=== PATIENT | female | born 1985 | race Caucasian/White ===

== ENCOUNTER 2017-05-21 23:24 | Emergency (ER) | payer BC ==
[2017-05-22] MEDS ORDERED: Ondansetron INJ* 2 MG/ML VIAL ONE (00:11)
[2017-05-22] MEDS ORDERED: Ondansetron INJ* 2 MG/ML VIAL IV ONE ×2 (00:26→03:37)
[2017-05-22] MEDS ORDERED: NS 0.9% 1000 ML* 1,000 ML IV ONE (00:27)
[2017-05-22 00:32] LABS: ABS Basophils 0.1 10^3/ul (0-0.2); ABS Eosinophils 0.2 10^3/ul (0-0.6); ABS Lymphocytes 2.2 10^3/ul (1.0-4.8); ABS Monocytes 0.8 10^3/ul (0-0.8); ABS Neutrophils 9.4 10^3/ul (1.5-7.7); ABS Nucleated RBC 0 10^3/ul; Eosinophil % 1.5 % (0-6); Hematocrit 40 % (35-47); Hemoglobin 13.3 g/dl (12.0-16.0); Lymphocyte % 17.5 % (25-47); Mean Corpuscular HGB Conc 33 g/dl (31-36); Mean Corpuscular Hemoglobin 28 pg (27-31); Mean Corpuscular Volume 85 fL (80-97); Mean Platelet Volume 9 um3 (7.4-10.4); Nucleated Red Blood Cells % 0.1; Platelet Count 319 10^3/ul (150-450); Red Blood Count 4.71 10^6/ul (4.0-5.4); Red Cell Distribution Width 15 % (10.5-15); White Blood Count 12.7 10^3/ul (3.5-10.8)
[2017-05-22 00:52] LABS: EGFR Non-African American 68.2 (>60)
[2017-05-22] MEDS ORDERED: Metoclopramide IV* 5 MG/ML 2 ML VIAL IV ONE (00:57)
[2017-05-22] MEDS ORDERED: NS 0.9% 1000 ML* 2,000 ML IV ONE (00:57)
[2017-05-22] MEDS ORDERED: HYDROmorphone INJ* 2 MG/ML CARPUJECT SYRINGE IV SLOW PU ONE (00:57)
[2017-05-22 01:54] LABS: Urine Appearance Clear; Urine Blood Negative (Negative); Urine Color Yellow; Urine Ketones Negative (Negative); Urine Protein Negative (Negative); Urine Specific Gravity 1.016 (1.010-1.030); Urine Urobilinogen Negative (Negative)
[2017-05-22] MEDS ORDERED: Iodixanol* (CONTRAST) 320 MG/ML 100 ML SDV IV ONE (02:10)
--- NOTE | 2017-05-22 03:56 | ED ---
Adelina Brady Thomas, scribed for Katerina Purvis MD on 05/22/17 at 0052 . Abdominal Pain/Female - HPI Summary HPI Summary: The patient is a 31 year old female complaining of epigastric pain that began a couple days ago but significantly worsened today. The pain radiates to her back. She also complains of nausea. Past medical history includes insulin- dependent diabetes, acute pancreatitis, and chronic pancreatitis. Her last bout acute pancreatitis was in March 2015. - History of Current Complaint Chief Complaint: EDAbdPain Stated Complaint: ABD PAIN Time Seen by Provider: 05/22/17 00:36 Hx Obtained From: Patient Onset/Duration: Lasting Days, Still Present, Worse Since - today Timing: Constant Severity Currently: Moderate Pain Intensity: 6 Pain Scale Used: 0-10 Numeric Location: Epigastric Radiates: Yes Radiates to: Back Alleviating Factor(s): Nothing Associated Signs and Symptoms: Positive: Nausea Allergies/Adverse Reactions: Allergies Allergy/AdvReac Type Severity Reaction Status Date / Time No Known Allergies Allergy Verified 05/21/17 23:29 PMH/Surg Hx/FS Hx/Imm Hx Endocrine/Hematology History: Reports: Hx Diabetes GI History: Reports: Other GI Disorders - Hx acute, chronic pancreatitis - Cancer History Cancer Type, Location and Year: Leukemia Infectious Disease History: No Infectious Disease History: Denies: Traveled Outside the [place] in Last 30 Days - Family History Known Family History: Positive: Diabetes - Social History Occupation: Employed Full-time Alcohol Use: None - 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 GENERAL: Patient is a well-developed and nourished female who is lying comfortable in the stretcher. Patient is not in any acute respiratory distress. HEAD AND FACE: No signs of trauma. No ecchymosis, hematomas or skull depressions. No sinus tenderness. EYES: PERRLA, EOMI x 2, No injected conjunctiva, no nystagmus. EARS: Hearing grossly intact. Ear canals and tympanic membranes are within normal limits. MOUTH: Oropharynx within normal limits. NECK: Supple, trachea is midline, no adenopathy, no JVD, no carotid bruit, no c- spine tenderness, neck with full ROM. CHEST: Symmetric, no tenderness at palpation LUNGS: Clear to auscultation bilaterally. No wheezing or crackles. CVS: Regular rate and rhythm, S1 and S2 present, no murmurs or gallops appreciated. ABDOMEN: Soft. Diffuse tenderness, mostly in the epigastrium. No signs of distention. No rebound no guarding, and no masses palpated. Bowel sounds are normal. EXTREMITIES: FROM in all major joints, no edema, no cyanosis or clubbing. NEURO: Alert and oriented x 3. No acute neurological deficits. Speech is normal and follows commands. SKIN: Dry and warm Triage Information Reviewed: Yes Vital Signs On Initial Exam: Initial Vitals Temp Pulse Resp BP Pulse Ox 97.7 F 106 16 154/94 97 05/21/17 23:26 05/21/17 23:26 05/21/17 23:26 05/21/17 23:26 05/21/17 23:26 Vital Signs Reviewed: Yes Diagnostics - Vital Signs Vital Signs Temp Pulse Resp BP Pulse Ox 05/21/17 23:26 97.7 F 106 16 154/94 97 - Laboratory Lab Results: Lab Results 05/22/17 Range/Units 00:21 WBC 12.7 H (3.5-10.8) 10^3/ul RBC 4.71 (4.0-5.4) 10^6/ul Hgb 13.3 (12.0-16.0) g/dl Hct 40 (35-47) % MCV 85 (80-97) fL MCH 28 (27-31) pg MCHC 33 (31-36) g/dl RDW 15 (10.5-15) % Plt Count 319 (150-450) 10^3/ul MPV 9 (7.4-10.4) um3 Neut % (Auto) 74.2 (38-83) % Lymph % (Auto) 17.5 L (25-47) % [place] % (Auto) 6.2 (0-7) % Eos % (Auto) 1.5 (0-6) % Baso % (Auto) 0.6 (0-2) % Absolute Neuts (auto) 9.4 H (1.5-7.7) 10^3/ul Absolute Lymphs (auto) 2.2 (1.0-4.8) 10^3/ul Absolute Monos (auto) 0.8 (0-0.8) 10^3/ul Absolute Eos (auto) 0.2 (0-0.6) 10^3/ul Absolute Basos (auto) 0.1 (0-0.2) 10^3/ul Absolute Nucleated RBC 0 10^3/ul Nucleated RBC % 0.1 Result Diagrams: 05/22/17 00:21 05/22/17 00:21 Lab Statement: Any lab studies that have been ordered have been reviewed, and results considered in the medical decision making process. - CT CT Abd/Pel CT Interpretation: No Acute Changes - No bowel obstruction, free air, or lisa fluid. Negative for diverticulitis or colitis. There is reflux of contrast note made of some gastroesophageal reflux of contrast. Normal kidneys urinary tract and urinary bladder. 1.9 cm enhancing lesion of right lobe of liver. Never present hemangioma but recommend follow up to confirm. Normal spleen. Normal pancreas. Normal gallbladder. Normal adrenal glands. No osseous abnormalities of the pelvic organs. Trace fluid in the pelvic cul de sac likely physiologic. Osseous structures are intact. Dr. Claros has reviewed this report. CT Interpretation Completed By: Radiologist Re-Evaluation - Re-Evaluation First Eval Re-Evaluation Time: 03:52 Comment: Results discussed. Patient will be discharged. Abdominal Pain Fem Course/Dx - Course Course Of Treatment: The patient is a 31 year old female with a history of pancreatitis complaining of epigastric pain that began a couple days ago but significantly worsened today. In the ED course the patient was given Dilaudid, Reglan, Zofran, and IV fluids. Bloodwork and urinalysis were obtained. CT Abd/ Pel shows No bowel obstruction, free air, or lisa fluid. Negative for diverticulitis or colitis. There is reflux of contrast note made of some gastroesophageal reflux of contrast. Normal kidneys urinary tract and urinary bladder. 1.9 cm enhancing lesion of right lobe of liver. Never present hemangioma but recommend follow up to confirm. Normal spleen. Normal pancreas. Normal gallbladder. Normal adrenal glands. No osseous abnormalities of the pelvic organs. Trace fluid in the pelvic cul de sac likely physiologic. Osseous structures are intact. The patient is diagnosed with abdominal pain. The patient is instructed to follow up with primary care. The patient is prescribed Zofran and Percocet. - Diagnoses Provider Diagnoses: Abdominal pain Discharge - Discharge Plan Condition: Stable Disposition: HOME Prescriptions: Ondansetron ODT TAB* [Zofran 4 MG Odt TAB*] 8 mg PO Q8H PRN #20 tab.odt PRN Reason: Nausea/Vomiting oxyCODONE/Acetamin 5/325 MG* [Percocet 5/325 TAB*] 1 tab PO Q6H PRN #14 tab MDD 4 PRN Reason: Pain Patient Education Materials: Abdominal Pain (ED) Referrals: [facility] PHYSICIAN REFERRAL [Outside] - 3 Days Additional Instructions: Follow up with your primary care physician in three days. If you do not have a primary care provider, you can use the [facility] physician referral service to find one and make an appointment. Return to the emergency department for any new or worsening symptoms. The documentation as recorded by the Adelina chamorro Thomas accurately reflects the service I personally performed and the decisions made by me, Katerina Purvis MD.
[2017-05-22] MEDS ORDERED: Ondansetron ODT TAB* 4 MG SL PRN (04:01)
[2017-05-22] MEDS ORDERED: O ndansetron ODT 4MG 2TAB PRPK 4 MG PAK PO ONE (04:12)
[2017-05-22 04:29] VITALS: BP 95/76
--- NOTE | 2017-05-22 09:35 | RAD ---
INDICATION: Abdominal pain, history of pancreatitis. COMPARISON: There are no prior studies available for comparison. TECHNIQUE: A CT scan of the abdomen and pelvis was performed with intravenous and oral contrast following intravenous injection of 64 ml of Visipaque 320 nonionic contrast. Contiguous axial sections were obtained from the lung bases through the symphysis pubis. Images were reconstructed in the coronal and sagittal planes. FINDINGS: There is mild dependent bilateral lower lobe subsegmental atelectasis. No pleural effusion is present. The liver is mildly enlarged and decreased in attenuation consistent with fatty infiltration. In addition there is a 1.9 cm enhancing lesion in the posterior segment of the right hepatic lobe. No calcified gallstones are seen. The spleen and pancreas appear to be within normal limits The kidneys and adrenal glands are normal in size. No hydronephrosis is seen. No significant focal renal abnormality is seen. The aorta is normal in caliber and demonstrates homogeneous contrast opacification. No significant enlarged retroperitoneal lymph nodes are seen. The stomach, small and large bowel appear nondistended. The patient is status post appendectomy. There is a suture line present along the medial aspect of the cecum. There is mild descending and sigmoid diverticulosis without evidence for diverticulitis. No free intraperitoneal air or fluid is seen. The uterus is anteverted and normal in size. There is a 1.3 cm sclerotic lesion present within the left femoral head. There is also a small sclerotic lesion within the symphysis pubis on the left side. No other focal osseous normality is are seen. The results of this examination were called to the emergency department charge nurse Karen. IMPRESSION: 1. NO EVIDENCE FOR ACUTE FINDING OR CAUSE FOR THE PATIENT'S ABDOMINAL PAIN IS SEEN. 2. 1.9 CM ENHANCING LESION WITHIN THE LIVER POSSIBLY A HEMANGIOMA OR FOCAL NODULAR HYPERPLASIA ALTHOUGH NONSPECIFIC. RECOMMEND AN MRI OF THE LIVER WITHOUT AND WITH CONTRAST. 3. 1.3 CM SCLEROTIC LESION IN THE LEFT FEMORAL HEAD. RECOMMEND A BONE SCAN FOR FURTHER EVALUATION. 4. MILD HEPATOMEGALY AND HEPATIC STEATOSIS.
== END 2017-05-22 04:35 | disposition home or self-care (01) ==
LOC: ED 23:24
DX: R10.13 Epigastric pain (principal); R11.0 Nausea; K76.9 Liver disease, unspecified; K76.0 Fatty (change of) liver, not elsewhere classified; R16.0 Hepatomegaly, not elsewhere classified; Z32.02 Encounter for pregnancy test, result negative; E11.9 Type 2 diabetes mellitus without complications; Z79.4 Long term (current) use of insulin; K86.1 Other chronic pancreatitis; F17.210 Nicotine dependence, cigarettes, uncomplicated
CPT/HCPCS: 36415; 74177; 80053; 81003; 82150; 83605; 83690; 83735; 84478; 84702; 85025; 86140; 96361; 96374; 96375; 96376; 99283; A9270-GY; J1170; J2405; J2765; Q9967

== ENCOUNTER 2017-05-28 23:04 | Emergency (ER) | payer BC ==
[2017-05-29 02:04] LABS: Hematocrit 37 % (35-47); Hemoglobin 12.2 g/dl (12.0-16.0); Mean Corpuscular HGB Conc 33 g/dl (31-36); Mean Corpuscular Hemoglobin 28 pg (27-31); Mean Corpuscular Volume 86 fL (80-97); Mean Platelet Volume 8.3 um3 (7.4-10.4); Platelet Count 389 10^3/ul (150-450); Red Blood Count 4.28 10^6/ul (4.0-5.4); Red Cell Distribution Width 15 % (10.5-15); White Blood Count 12.3 10^3/ul (3.5-10.8)
[2017-05-29 02:05] LABS: Urine Appearance Clear; Urine Blood Negative (Negative); Urine Color Straw; Urine Ketones Negative (Negative); Urine Protein Negative (Negative); Urine Specific Gravity 1.008 (1.010-1.030); Urine Urobilinogen Negative (Negative)
[2017-05-29] MEDS ORDERED: HYDROmorphone INJ* 2 MG/ML CARPUJECT SYRINGE IV SLOW PU ONE (02:06)
[2017-05-29] MEDS ORDERED: Dexamethasone IV* 4 MG/ML 1 ML (4 MG) IV SLOW PU ONE (02:07)
[2017-05-29] MEDS ORDERED: NS 0.9% 1000 ML* 1,000 ML IV ONE (02:08)
[2017-05-29 02:11] LABS: ABS Basophils 0.1 10^3/ul (0-0.2); ABS Eosinophils 0.2 10^3/ul (0-0.6); ABS Lymphocytes 5.6 10^3/ul (1.0-4.8); ABS Monocytes 0.9 10^3/ul (0-0.8); ABS Neutrophils 5.5 10^3/ul (1.5-7.7); ABS Nucleated RBC 0 10^3/ul; Eosinophil % 1.8 % (0-6); Lymphocyte % 45.6 % (25-47); Nucleated Red Blood Cells % 0.1
[2017-05-29 02:21] LABS: EGFR Non-African American 76.5 (>60)
[2017-05-29 04:23] VITALS: BP 108/60
--- NOTE | 2017-05-31 15:02 | ED ---
Wellington Brady Angela, scribed for Clarence Bustillos MD on 05/29/17 at 0201 . Abdominal Pain/Female - HPI Summary HPI Summary: This pt is a 31 y/o female with hx of chronic pancreatitis presenting to [facility] c /o intermittent abd pain x1 week. Pt additionally notes she feels feverish, has diarrhea, nausea. She describes diarrhea as non-bloody. Her last bowel movement was this morning. Denies vaginal bleeding or discharge, dysuria. She reports her diet makes her symptoms better. Pt was seen last week for the same symptoms and had a CT done, her triglycerides was 420. She states she has been hospitalized twice in the last year for severe inflamed bowels. Pt reports her triglycerides are in the 1000's when she was hospitalized. 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 - History of Current Complaint Chief Complaint: EDAbdPain Stated Complaint: ABD PAIN Hx Obtained From: Patient Onset/Duration: Lasting Days, Still Present Timing: Days Severity Currently: Severe Pain Intensity: 7 Pain Scale Used: 0-10 Numeric Location: Diffuse Radiates: No Aggravating Factor(s): Nothing Alleviating Factor(s): Nothing Associated Signs and Symptoms: Positive: Fever - feels feverish, Nausea, Diarrhea. Negative: Constipation, Blood in Stool, Vaginal Bleeding, Vaginal Discharge, Vomiting Allergies/Adverse Reactions: Allergies Allergy/AdvReac Type Severity Reaction Status Date / Time No Known Allergies Allergy Verified 05/21/17 23:29 PMH/Surg Hx/FS Hx/Imm Hx Endocrine/Hematology History: Reports: Hx Diabetes, Hx Thyroid Disease - hypothyroidism Cardiovascular History: Reports: Other Cardiovascular Problems/Disorders - Hypertriglyceridemia GI History: Reports: Other GI Disorders - Hx acute, chronic pancreatitis - Cancer History Cancer Type, Location and Year: Acute monocytic leukemia - Surgical History Surgery Procedure, Year, and Place: appendectomy Infectious Disease History: No Infectious Disease History: Denies: Traveled Outside the [place] in Last 30 Days - Family History Known Family History: Positive: Diabetes - Social History Alcohol Use: None Hx Substance Use: No - No substances currently, 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 Negative: Vomiting Negative: dysuria, discharge, other - vaginal bleeding Skin: Negative Neurological: Negative All Other Systems Reviewed And Are Negative: Yes Physical Exam - Summary Physical Exam Summary: gen: no acute distress heent: normal mucous membranes, normal ROM of neck cv: normal s1s2 no murmurs resp: clear to auscultation b/l abd/GI: no abdominal tenderness or masses. normal bowel sounds. musculoskel: full ROM in all 4 extremities neuro: no focal neuro deficits : skin: warm, dry psych: normal affect Triage Information Reviewed: Yes Vital Signs On Initial Exam: Initial Vitals Temp Pulse Resp BP Pulse Ox 97.7 F 114 20 135/99 95 05/28/17 23:05 05/28/17 23:05 05/28/17 23:05 05/28/17 23:05 05/28/17 23:05 Vital Signs Reviewed: Yes Diagnostics - Vital Signs Vital Signs Temp Pulse Resp BP Pulse Ox 05/29/17 00:29 82 16 109/83 96 05/29/17 00:06 89 98 05/29/17 00:04 114/76 05/28/17 23:05 97.7 F 114 20 135/99 95 - Laboratory Lab Results: Lab Results 05/29/17 05/29/17 05/29/17 Range/Units 01:50 01:50 01:50 WBC 12.3 H (3.5-10.8) 10^3/ul RBC 4.28 (4.0-5.4) 10^6/ul Hgb 12.2 (12.0-16.0) g/dl Hct 37 (35-47) % MCV 86 (80-97) fL MCH 28 (27-31) pg MCHC 33 (31-36) g/dl RDW 15 (10.5-15) % Plt Count 389 (150-450) 10^3/ul MPV 8.3 (7.4-10.4) um3 Neut % (Auto) 44.7 (38-83) % Lymph % (Auto) 45.6 (25-47) % [place] % (Auto) 7.3 H (0-7) % Eos % (Auto) 1.8 (0-6) % Baso % (Auto) 0.6 (0-2) % Absolute Neuts (auto) 5.5 (1.5-7.7) 10^3/ul Absolute Lymphs (auto) 5.6 H (1.0-4.8) 10^3/ul Absolute Monos (auto) 0.9 H (0-0.8) 10^3/ul Absolute Eos (auto) 0.2 (0-0.6) 10^3/ul Absolute Basos (auto) 0.1 (0-0.2) 10^3/ul Absolute Nucleated RBC 0 10^3/ul Nucleated RBC % 0.1 Sodium 138 (133-145) mmol/L Potassium 3.8 (3.5-5.0) mmol/L Chloride 104 (101-111) mmol/L Carbon Dioxide 26 (22-32) mmol/L Anion Gap 8 (2-11) mmol/L BUN 14 (6-24) mg/dL Creatinine 0.86 (0.51-0.95) mg/dL Est GFR ( Amer) 98.3 (>60) Est GFR (Non-Af Amer) 76.5 (>60) BUN/Creatinine Ratio 16.3 (8-20) Glucose 74 (70-100) mg/dL Lactic Acid 0.8 (0.5-2.0) mmol/L Calcium 10.8 H (8.6-10.3) mg/dL Total Bilirubin 0.30 (0.2-1.0) mg/dL AST 29 (13-39) U/L ALT 24 (7-52) U/L Alkaline Phosphatase 73 (34-104) U/L C-Reactive Protein < 1.00 (< 5.00) mg/L Total Protein 7.7 (6.4-8.9) g/dL Albumin 4.8 (3.2-5.2) g/dL Globulin 2.9 (2-4) g/dL Albumin/Globulin Ratio 1.7 (1-3) Amylase 23 L (29-103) U/L Lipase 19 (11.0-82.0) U/L Urine Color Urine Appearance Urine pH (5-9) Ur Specific [place] (1.010-1.030) Urine Protein (Negative) Urine Ketones (Negative) Urine Blood (Negative) Urine Nitrate (Negative) Urine Bilirubin (Negative) Urine Urobilinogen (Negative) Ur Leukocyte Esterase (Negative) Urine Glucose (Negative) 05/29/17 Range/Units 01:50 WBC (3.5-10.8) 10^3/ul RBC (4.0-5.4) 10^6/ul Hgb (12.0-16.0) g/dl Hct (35-47) % MCV (80-97) fL MCH (27-31) pg MCHC (31-36) g/dl RDW (10.5-15) % Plt Count (150-450) 10^3/ul MPV (7.4-10.4) um3 Neut % (Auto) (38-83) % Lymph % (Auto) (25-47) % [place] % (Auto) (0-7) % Eos % (Auto) (0-6) % Baso % (Auto) (0-2) % Absolute Neuts (auto) (1.5-7.7) 10^3/ul Absolute Lymphs (auto) (1.0-4.8) 10^3/ul Absolute Monos (auto) (0-0.8) 10^3/ul Absolute Eos (auto) (0-0.6) 10^3/ul Absolute Basos (auto) (0-0.2) 10^3/ul Absolute Nucleated RBC 10^3/ul Nucleated RBC % Sodium (133-145) mmol/L Potassium (3.5-5.0) mmol/L Chloride (101-111) mmol/L Carbon Dioxide (22-32) mmol/L Anion Gap (2-11) mmol/L BUN (6-24) mg/dL Creatinine (0.51-0.95) mg/dL Est GFR ( Amer) (>60) Est GFR (Non-Af Amer) (>60) BUN/Creatinine Ratio (8-20) Glucose (70-100) mg/dL Lactic Acid (0.5-2.0) mmol/L Calcium (8.6-10.3) mg/dL Total Bilirubin (0.2-1.0) mg/dL AST (13-39) U/L ALT (7-52) U/L Alkaline Phosphatase (34-104) U/L C-Reactive Protein (< 5.00) mg/L Total Protein (6.4-8.9) g/dL Albumin (3.2-5.2) g/dL Globulin (2-4) g/dL Albumin/Globulin Ratio (1-3) Amylase (29-103) U/L Lipase (11.0-82.0) U/L Urine Color Straw Urine Appearance Clear Urine pH 6.0 (5-9) Ur Specific [place] 1.008 L (1.010-1.030) Urine Protein Negative (Negative) Urine Ketones Negative (Negative) Urine Blood Negative (Negative) Urine Nitrate Negative (Negative) Urine Bilirubin Negative (Negative) Urine Urobilinogen Negative (Negative) Ur Leukocyte Esterase Negative (Negative) Urine Glucose Negative (Negative) Result Diagrams: 05/29/17 01:50 05/29/17 01:50 Lab Statement: Any lab studies that have been ordered have been reviewed, and results considered in the medical decision making process. Re-Evaluation - Re-Evaluation First Eval Re-Evaluation Time: 03:45 Comment: Pt reports she is feeling better. Abdominal Pain Fem Course/Dx - Course Course Of Treatment: because of her history of multiple prior episodes without any definitive diagnosis, and due to her young age with many CT scans in the past, I decided together wtih the patient that CT scan at this time would be inappropriate given nonfocal exam and relief with medications. Pt improved throughout ED course, labs and vitals wnl. Instructed to fu with GI physician, agrees to and understnads dc instructions. - Diagnoses Provider Diagnoses: Abdominal pain Discharge - Sign-Out/Discharge Documenting (check all that apply): Discharge - discharge to home - Discharge Plan Condition: Improved Disposition: HOME Prescriptions: oxyCODONE/Acetamin 5/325 MG* [Percocet 5/325 TAB*] 1 tab PO Q8H PRN #6 tab MDD 3 tabs PRN Reason: Pain - Moderate To Severe Patient Education Materials: Abdominal Pain (ED), Colitis (ED) Referrals: Jay Reece MD [Medical Doctor] - Jo Ann RAGSDALE,Paul Meyers [Primary Care Provider] - Magdy Hitchcock MD [Medical Doctor] - Additional Instructions: PLEASE TAKE MEDICATIONS DIRECTED PLEASE MAKE AN APPOINTMENT FIRST THING IN THE MORNING TO BE SEEN BY A [employer] WITHIN 1 WEEK PLEASE RETURN IMMEDIATELY TO THE ER IF YOU HAVE ANY WORSENING OR CONCERNING SYMPTOMS PLEASE MAKE AN APPOINTMENT TO BE SEEN BY YOUR PRIMARY CARE DOCTOR WITHIN 1 WEEK - Billing Disposition and Condition Condition: IMPROVED Disposition: HOME The documentation as recorded by the Wellington chamorro Angela accurately reflects the service I personally performed and the decisions made by me, Clarence Bustillos MD.
== END 2017-05-29 04:23 | disposition home or self-care (01) ==
LOC: ED 23:04
DX: R50.9 Fever, unspecified (principal); R11.0 Nausea; R19.7 Diarrhea, unspecified; R10.9 Unspecified abdominal pain
CPT/HCPCS: 36415; 80053; 81003; 82150; 83605; 83690; 85025; 86140; 96374; 96375; 99283; J1100; J1170

== ENCOUNTER 2017-08-04 07:08 | Emergency (ER) | payer BC ==
[2017-08-04] MEDS ORDERED: NS 0.9% 1000 ML* 1,000 ML IV ONE ×2 (07:21→09:04)
[2017-08-04] MEDS ORDERED: HYDROmorphone INJ* 2 MG/ML CARPUJECT SYRINGE IV SLOW PU ONE (08:15)
[2017-08-04] MEDS ORDERED: Pantoprazole IV* 40 MG IV ONE (08:17)
[2017-08-04 08:22] LABS: INR 0.98 (0.77-1.02)
[2017-08-04 08:28] LABS: EGFR Non-African American 73.5 (>60)
[2017-08-04 08:32] LABS: ABS Basophils 0.1 10^3/ul (0-0.2); ABS Eosinophils 0.2 10^3/ul (0-0.6); ABS Lymphocytes 4.3 10^3/ul (1.0-4.8); ABS Monocytes 0.8 10^3/ul (0-0.8); ABS Neutrophils 4.1 10^3/ul (1.5-7.7); ABS Nucleated RBC 0 10^3/ul; Eosinophil % 2.5 % (0-6); Hematocrit 35 % (35-47); Mean Corpuscular HGB Conc 34 g/dl (31-36); Mean Corpuscular Hemoglobin 29 pg (27-31); Mean Corpuscular Volume 85 fL (80-97); Mean Platelet Volume 8.8 um3 (7.4-10.4); Nucleated Red Blood Cells % 0; Platelet Count 342 10^3/ul (150-450); Red Blood Count 4.15 10^6/ul (4.0-5.4); Red Cell Distribution Width 14 % (10.5-15); White Blood Count 9.5 10^3/ul (3.5-10.8)
[2017-08-04 09:23] LABS: Urine Appearance Clear; Urine Blood Negative (Negative); Urine Color Straw; Urine Ketones Negative (Negative); Urine Protein Negative (Negative); Urine Specific Gravity 1.008 (1.010-1.030); Urine Urobilinogen Negative (Negative)
[2017-08-04] MEDS ORDERED: oxyCODONE/Acetamin 5/325 MG* TAB PO ONE (11:07)
[2017-08-04] MEDS ORDERED: Magnesium Oxide TAB* 400 MG PO ONE (11:07)
[2017-08-04] MEDS ORDERED: Ondansetron INJ* 2 MG/ML VIAL IV ONE (11:08)
[2017-08-04] MEDS ORDERED: Ondansetron ODT TAB* 4 MG PO ONE (11:15)
[2017-08-04] MEDS ORDERED: Ondansetron ODT TAB* 4 MG ONE (11:15)
[2017-08-04 12:33] VITALS: BP 130/79
--- NOTE | 2017-08-05 00:32 | ED ---
[place] Brady Emily, scribed for Isabel Tapia MD on 08/04/17 at 0757 . Abdominal Pain/Female - HPI Summary HPI Summary: This patient is a 31 year old F presenting to [facility] with a chief complaint of epigastric abd pain since 2 days ago. The patient rates the pain 9/10 in severity. Symptoms alleviated by nothing. Patient reports decreased appetite ( has not eaten since 2100 yesterday), her self-tested sugars are low (in the 60s three times yesterday), lower and upper back pain, and increased urinary frequency. She denies any recent injury to the back. Pt reports that she was diagnosed with a stomach ulcer last month by endoscopy ( Dr. Robins, [facility]), and prescribed omeprazole (20 mg for the last 3 weeks) . She is a type two diabetic and uses a pump for insulin and is followe by the [facility] in [place]. She reports she also has chronic pancreatitis, and these symptoms feel similar to the symptoms of her ulcer, not her pancreatitis. She reports that she had a tooth recently extracted from the bottom left, and another tooth "fall out" recently from the top left, but denies discharge or gum swelling at the sites of the tooth loss. Pt reports that she is a childhood leukemia (AML) survivor and has developed multiple complications from the total body radiation treatment for the leukemia , including multiple metabolic syndrome (MEN 2), thyroidectomy, early menopause (when she was 20), and chronic pain. She states that she has recently moved to the [place] area, and does not yet have a GI doctor in [place]. - History of Current Complaint Chief Complaint: EDAbdPain Stated Complaint: ABD PAIN Time Seen by Provider: 08/04/17 07:21 Hx Obtained From: Patient Hx Last Menstrual Period: post menopausal ?: No Onset/Duration: Sudden Onset, Lasting Days, Still Present Timing: Constant Severity Initially: Severe Severity Currently: Severe Pain Intensity: 9 Pain Scale Used: 0-10 Numeric Location: Epigastric Radiates: No Character: Burning Aggravating Factor(s): Nothing Alleviating Factor(s): Nothing Associated Signs and Symptoms: Positive: Back Pain, Urinary Symptoms, Decreased Appetite, Nausea, Other: - Positive decreased appetite, her self-tested sugars are low, lower and upper back pain, and increased urinary frequency. Simlar Episode/Dx as:: ulcer Allergies/Adverse Reactions: Allergies Allergy/AdvReac Type Severity Reaction Status Date / Time No Known Allergies Allergy Verified 08/04/17 07:13 Home Medications: Home Medications Choline Fenofibrate(NF) [Trilipix(NF)] 135 mg PO DAILY 08/04/17 [History Confirmed 08/04/17] Estradiol/Levonorgestrel [Climara Pro Patch] 1 patch TRANSDERM WEEKLY 08/04/17 [ History Confirmed 08/04/17] Icosapent Ethyl [Vascepa] 1 gm PO BID 08/04/17 [History Confirmed 08/04/17] Insulin LISPRO* [HumaLOG*] 0 units SUBCUT .VIA PUMP MDD 115 units 08/04/17 [ History Confirmed 08/04/17] Levothyroxine TAB* [Synthroid TAB*] 137 mcg PO DAILY 08/04/17 [History Confirmed 08/04/17] Pioglitazone TAB* [Actos TAB*] 15 mg PO DAILY 08/04/17 [History Confirmed ] Ramipril CAP* [Altace CAP*] 2.5 mg PO DAILY 08/04/17 [History Confirmed 08/04/17 ] Rosuvastatin (NF) [Crestor] 20 mg PO DAILY 08/04/17 [History Confirmed 08/04/17] buPROPion SR TAB* [Wellbutrin SR TAB*] 100 mg PO DAILY 08/04/17 [History Confirmed 08/04/17] PMH/Surg Hx/FS Hx/Imm Hx Previously Healthy: No Endocrine/Hematology History: Reports: Hx Diabetes - INSULIN PUMP. 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 - Surgical History Surgery Procedure, Year, and Place: APPENDECTOMY; THYROIDECTOMY NODULES-BENIGN; CTR BILATERAL; RT KNEE SCOPE X2(OSTEOCHONDROMA); PORT PLACEMENT(HAS BEEN REMOVED ); BONE MARROW TRANSPLANT 1987 Infectious Disease History: No Infectious Disease History: Denies: Traveled Outside the US in Last 30 Days - Family History Known Family History: Positive: Diabetes Negative: Hypertension - Social History Occupation: Employed Full-time Lives: Alone Alcohol Use: None Hx Substance Use: No - No substances currently, 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 Substance Use Type: Reports: None Substance Use Comment - Amount & Last Used: 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 Hx Tobacco Use: Yes Smoking Status (MU): Light Every Day Tobacco Smoker Review of Systems Negative: Fever Positive: Other - Positive low self-tested blood sugar Respiratory: Negative Positive: Abdominal Pain, Other - Positive decreased appetite Positive: frequency Positive: Other - Positive back pain Skin: Negative Neurological: Negative Psychological: Normal All Other Systems Reviewed And Are Negative: Yes Physical Exam - Summary Physical Exam Summary: Appearance: Well-appearing, moderate pain distress, well-nourished Skin: Warm, color reflects adequate perfusion, dry Head: Normal Head/Face inspection, atraumatic Eyes: Conjunctiva clear ENT: Normal inspection Neck: Supple, no nodes, no JVD Respiratory: Lungs clear, normal breath sounds, no respiratory distress Cardio: RRR, No murmur, pulses normal, brisk capillary refill Abdomen: Soft, epigastric tenderness, no CVA tenderness, no masses, no guarding , no rebound, insulin pump in RLQ Bowel sounds: Present Musculoskeletal: Strength Intact/ROM intact, no calf tenderness, no edema. Bilateral lumbosacral tenderness, mid thoracic paraspinal tenderness Psychological: Normal Neuro: Alert, muscle tone normal, no focal deficit Triage Information Reviewed: Yes Vital Signs On Initial Exam: Initial Vitals Temp Pulse Resp BP Pulse Ox 97.5 F 95 16 150/88 97 08/04/17 07:13 08/04/17 07:13 08/04/17 07:13 08/04/17 07:13 08/04/17 07:13 Vital Signs Reviewed: Yes Diagnostics - Vital Signs Vital Signs Temp Pulse Resp BP Pulse Ox 08/04/17 07:13 97.5 F 95 16 150/88 97 - Laboratory Lab Results: Lab Results 08/04/17 08/04/17 08/04/17 Range/Units 07:35 07:35 07:35 WBC 9.5 (3.5-10.8) 10^3/ul RBC 4.15 (4.0-5.4) 10^6/ul Hgb 12.0 (12.0-16.0) g/dl Hct 35 (35-47) % MCV 85 (80-97) fL MCH 29 (27-31) pg MCHC 34 (31-36) g/dl RDW 14 (10.5-15) % Plt Count 342 (150-450) 10^3/ul MPV 8.8 (7.4-10.4) um3 Neut % (Auto) 43.0 (38-83) % Lymph % (Auto) 45.0 (25-47) % [place] % (Auto) 8.8 H (0-7) % Eos % (Auto) 2.5 (0-6) % Baso % (Auto) 0.7 (0-2) % Absolute Neuts (auto) 4.1 (1.5-7.7) 10^3/ul Absolute Lymphs (auto) 4.3 (1.0-4.8) 10^3/ul Absolute Monos (auto) 0.8 (0-0.8) 10^3/ul Absolute Eos (auto) 0.2 (0-0.6) 10^3/ul Absolute Basos (auto) 0.1 (0-0.2) 10^3/ul Absolute Nucleated RBC 0 10^3/ul Nucleated RBC % 0 INR (Anticoag Therapy) 0.98 (0.77-1.02) Sodium 141 (139-145) mmol/L Potassium 3.7 (3.5-5.0) mmol/L Chloride 105 (101-111) mmol/L Carbon Dioxide 28 (22-32) mmol/L Anion Gap 8 (2-11) mmol/L BUN 19 (6-24) mg/dL Creatinine 0.89 (0.51-0.95) mg/dL Est GFR ( Amer) 94.5 (>60) Est GFR (Non-Af Amer) 73.5 (>60) BUN/Creatinine Ratio 21.3 H (8-20) Glucose 75 (70-100) mg/dL Lactic Acid (0.5-2.0) mmol/L Calcium 11.0 H (8.6-10.3) mg/dL Magnesium 1.8 L (1.9-2.7) mg/dL Total Bilirubin 0.30 (0.2-1.0) mg/dL AST 47 H (13-39) U/L ALT 32 (7-52) U/L Alkaline Phosphatase 77 (34-104) U/L Total Creatine Kinase 611 H (10-223) U/L C-Reactive Protein 1.17 (< 5.00) mg/L Total Protein 7.8 (6.4-8.9) g/dL Albumin 4.9 (3.2-5.2) g/dL Globulin 2.9 (2-4) g/dL Albumin/Globulin Ratio 1.7 (1-3) Amylase 28 L (29-103) U/L Lipase 16 (11.0-82.0) U/L Beta HCG, Quant 1.77 mIU/mL Urine Color Urine Appearance Urine pH (5-9) Ur Specific [place] (1.010-1.030) Urine Protein (Negative) Urine Ketones (Negative) Urine Blood (Negative) Urine Nitrate (Negative) Urine Bilirubin (Negative) Urine Urobilinogen (Negative) Ur Leukocyte Esterase (Negative) Urine Glucose (Negative) 08/04/17 08/04/17 Range/Units 07:35 09:05 WBC (3.5-10.8) 10^3/ul RBC (4.0-5.4) 10^6/ul Hgb (12.0-16.0) g/dl Hct (35-47) % MCV (80-97) fL MCH (27-31) pg MCHC (31-36) g/dl RDW (10.5-15) % Plt Count (150-450) 10^3/ul MPV (7.4-10.4) um3 Neut % (Auto) (38-83) % Lymph % (Auto) (25-47) % [place] % (Auto) (0-7) % Eos % (Auto) (0-6) % Baso % (Auto) (0-2) % Absolute Neuts (auto) (1.5-7.7) 10^3/ul Absolute Lymphs (auto) (1.0-4.8) 10^3/ul Absolute Monos (auto) (0-0.8) 10^3/ul Absolute Eos (auto) (0-0.6) 10^3/ul Absolute Basos (auto) (0-0.2) 10^3/ul Absolute Nucleated RBC 10^3/ul Nucleated RBC % INR (Anticoag Therapy) (0.77-1.02) Sodium (139-145) mmol/L Potassium (3.5-5.0) mmol/L Chloride (101-111) mmol/L Carbon Dioxide (22-32) mmol/L Anion Gap (2-11) mmol/L BUN (6-24) mg/dL Creatinine (0.51-0.95) mg/dL Est GFR ( Amer) (>60) Est GFR (Non-Af Amer) (>60) BUN/Creatinine Ratio (8-20) Glucose (70-100) mg/dL Lactic Acid 0.7 (0.5-2.0) mmol/L Calcium (8.6-10.3) mg/dL Magnesium (1.9-2.7) mg/dL Total Bilirubin (0.2-1.0) mg/dL AST (13-39) U/L ALT (7-52) U/L Alkaline Phosphatase (34-104) U/L Total Creatine Kinase (10-223) U/L C-Reactive Protein (< 5.00) mg/L Total Protein (6.4-8.9) g/dL Albumin (3.2-5.2) g/dL Globulin (2-4) g/dL Albumin/Globulin Ratio (1-3) Amylase (29-103) U/L Lipase (11.0-82.0) U/L Beta HCG, Quant mIU/mL Urine Color Straw Urine Appearance Clear Urine pH 5.0 (5-9) Ur Specific [place] 1.008 L (1.010-1.030) Urine Protein Negative (Negative) Urine Ketones Negative (Negative) Urine Blood Negative (Negative) Urine Nitrate Negative (Negative) Urine Bilirubin Negative (Negative) Urine Urobilinogen Negative (Negative) Ur Leukocyte Esterase Negative (Negative) Urine Glucose Negative (Negative) Result Diagrams: 08/04/17 07:35 08/04/17 07:35 Lab Statement: Any lab studies that have been ordered have been reviewed, and results considered in the medical decision making process. Re-Evaluation - Re-Evaluation First Eval Re-Evaluation Time: 10:57 Change: Unchanged Comment: She is now complaining of epigastric pain that has returned after it lessened with treatment of Dilaudid. Discussed discharge plans with the patient. Abdominal Pain Fem Course/Dx - Course Course Of Treatment: This patient is a 31 year old F presenting to [facility] with a chief complaint of epigastric abd pain 2 days ago. She reports a history of a stomach ulcer and pancreatitis. In the ED course, she recieved fluids, protonix IV, Percocet, Zofran, dilaudid, and Magnesium po. The patient will be discharged home with prescriptions for Zofran, Percocet, Prilosec, and Carafate. Pt voices concern about increasing omeprazole, fearing the adverse reaction of pancreatitis. She is agreeable with plan for discharge. - Diagnoses Differential Diagnosis: Positive: Bowel Obstruction, Gall Bladder Disease, Hepatitis, Pancreatitis, Peptic Ulcer Disease Provider Diagnoses: Gastric ulcer, Abdominal pain, Elevated CK - Provider Notifications Discussed Care Of Patient With: Jenni Temple MD - Dr. Robins's coverage, recommends add carafate, increase omeprazole Instructed by Provider To: Have Pt Call For Appt. Discharge - Sign-Out/Discharge Documenting (check all that apply): Discharge/Admit/Transfer - Discharge Plan Condition: Stable Disposition: HOME Prescriptions: Omeprazole CAP* [Prilosec CAP* 20 MG] 40 mg PO BID #120 cap. Ondansetron ODT TAB* [Zofran 4 MG Odt TAB*] 8 mg PO Q8H PRN #30 tab.odt PRN Reason: Nausea oxyCODONE/Acetamin 5/325 MG* [Percocet 5/325 TAB*] 1 tab PO Q4H PRN #18 tab MDD 6 PRN Reason: Severe Pain Sucralfate TAB* [Carafate*] 1 gm PO QID #120 tab Patient Education Materials: Acute Abdominal Pain (ED) Forms: *Work Release Referrals: Rebecca Robins MD [Medical Doctor] - As Soon As Possible Jya Reece MD [Medical Doctor] - As Soon As Possible Jo Ann RAGSDALE,Paul Meyers [Primary Care Provider] - As Soon As Possible Additional Instructions: We gave you a copy of your labs. We talked to Dr. Robins's coverage, Dr. Temple and she advised increasing your omeprazole to 40mg twice a day, and adding the carafate 1gram before meals and at bedtime (4 times a day). I also prescribed zofran and percocet for nausea and pain. You were given dilaudid 1mg IV, magnesium 800mg orally, zofran 8mg orally and percocet 5/325mg orally. Return to the ER if you have new or worsening symptoms. Have definite follow up with Dr. Robins, or try to get established with [facility]. - Billing Disposition and Condition Condition: STABLE Disposition: HOME The documentation as recorded by the [place] chamorro Emily accurately reflects the service I personally performed and the decisions made by me, Isabel Tapia MD.
== END 2017-08-04 12:31 | disposition home or self-care (01) ==
LOC: ED 07:08
DX: K52.9 Noninfective gastroenteritis and colitis, unspecified (principal); R10.13 Epigastric pain; R94.4 Abnormal results of kidney function studies; F17.200 Nicotine dependence, unspecified, uncomplicated; E11.9 Type 2 diabetes mellitus without complications; Z79.4 Long term (current) use of insulin; Z96.41 Presence of insulin pump (external) (internal); I10 Essential (primary) hypertension; Z79.899 Other long term (current) drug therapy; Z85.6 Personal history of leukemia
CPT/HCPCS: 36415; 80053; 81003; 82150; 82550; 83605; 83690; 83735; 84702; 85025; 85610; 86140; 99283; A9270-GY; J1170

== ENCOUNTER 2017-10-08 23:07 | Emergency (ER) | payer BC ==
[2017-10-09] MEDS ORDERED: oxyCODONE TAB* 5 MG TAB PO ONE (00:08)
[2017-10-09] MEDS ORDERED: Ibuprofen TAB* 400 MG PO ONE (00:08)
[2017-10-09] MEDS ORDERED: Penicillin VK TAB* 250 MG PO ONE (00:11)
--- NOTE | 2017-10-09 00:13 | ED ---
Throat Pain/Nasal Congestion - HPI Summary HPI Summary: Patient complains of dental pain on left upper rear molar times one week. Has seen dentist, has appointment scheduled to have tooth removed in 2 days. She was given prescription for amoxicillin and hydrocodone for other dental pain. Finished antibiotics 2 weeks ago. States she has tried taking hydrocodone which is not providing any relief from pain. Denies fever, sore throat, ear pain, ROSS, N/V, abdominal pain, purulent discharge from mouth. - History of Current Complaint Chief Complaint: EDDentalPain Time Seen by Provider: 10/08/17 23:43 Hx Obtained From: Patient Onset/Duration: Gradual Onset Severity: Severe Associated Signs And Symptoms: Positive: Negative Cough: None - Allergies/Home Medications Allergies/Adverse Reactions: Allergies Allergy/AdvReac Type Severity Reaction Status Date / Time No Known Allergies Allergy Verified 08/04/17 07:13 PMH/Surg Hx/FS Hx/Imm Hx Endocrine/Hematology History: Reports: Hx Diabetes - INSULIN PUMP. 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 - Surgical History Surgery Procedure, Year, and Place: APPENDECTOMY; THYROIDECTOMY NODULES-BENIGN; CTR BILATERAL; RT KNEE SCOPE X2(OSTEOCHONDROMA); PORT PLACEMENT(HAS BEEN REMOVED ); BONE MARROW TRANSPLANT 1987 Infectious Disease History: No Infectious Disease History: Denies: Traveled Outside the [place] in Last 30 Days - Family History Known Family History: Positive: Diabetes Negative: Hypertension - Social History Alcohol Use: None Hx Substance Use: No - No substances currently, 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 Substance Use Type: Reports: None Substance Use Comment - Amount & Last Used: 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 Triage Information Reviewed: Yes Vital Signs On Initial Exam: Initial Vitals Temp Pulse Resp BP Pulse Ox 98.6 F 88 97 136/88 98 10/08/17 23:10 10/08/17 23:10 10/08/17 23:10 10/08/17 23:10 10/08/17 23:10 Vital Signs Reviewed: Yes Appearance: Positive: Well-Appearing Skin: Positive: Warm Head/Face: Positive: Normal Head/Face Inspection Eyes: Positive: Normal Dental: Positive: Gross Decay/Caries @. Negative: Abscess @, Bleeding Neck: Positive: Supple Respiratory/Lung Sounds: Positive: Clear to Auscultation Cardiovascular: Positive: Normal Abdomen Description: Positive: Nontender Musculoskeletal: Positive: Normal Neurological: Positive: Normal Psychiatric: Positive: Normal AVPU Assessment: Alert - [place] Coma Scale Best Eye Response: 4 - Spontaneous Best Motor Response: 6 - Obeys Commands Best Verbal Response: 5 - Oriented Coma Scale Total: 15 Diagnostics - Vital Signs Vital Signs Temp Pulse Resp BP Pulse Ox 10/08/17 23:10 98.6 F 88 97 136/88 98 - Laboratory Lab Statement: Any lab studies that have been ordered have been reviewed, and results considered in the medical decision making process. EENT Course/Dx - Course Course Of Treatment: Patient complains of dental pain on left upper rear molar times one week. Has seen dentist, has appointment scheduled to have tooth removed in 2 days. She was given prescription for amoxicillin and hydrocodone for other dental pain. Finished antibiotics 2 weeks ago. States she has tried taking hydrocodone which is not providing any relief from pain. Denies fever, sore throat, ear pain, ROSS, N/V, abdominal pain, purulent discharge from mouth. Physical exam:No abscess, oral lesions, swelling or purulent discharge noted in mouth. Plan: Vital signs within normal limits. Appointment in 2 days for tooth removal. Rx for oxycodone 5mg PO and pen VK until dentist appointment. - Diagnoses Provider Diagnoses: Toothache Discharge - Sign-Out/Discharge Documenting (check all that apply): Patient Departure - Discharge Plan Condition: Stable Disposition: HOME Prescriptions: Oxycodone HCl 5 mg PO TID 2 Days #6 tablet MDD 3 tabs Penicillin VK 500 MG TAB(NF) [Penicillin VK 500 mg Tab] 500 mg PO QID 7 Days # 28 tab Patient Education Materials: Toothache (ED) Referrals: Jo Ann RAGSDALE,Paul Meyers [Primary Care Provider] - Additional Instructions: Follow-up with your dentist appointment in 2 days. Return to the ED for any new or worsening symptoms - Billing Disposition and Condition Condition: STABLE Disposition: Home
[2017-10-09 00:58] VITALS: BP 130/84
== END 2017-10-09 00:56 | disposition home or self-care (01) ==
LOC: ED 23:07
DX: K08.89 Other specified disorders of teeth and supporting structures (principal); E11.9 Type 2 diabetes mellitus without complications; Z96.41 Presence of insulin pump (external) (internal); Z94.81 Bone marrow transplant status; F17.200 Nicotine dependence, unspecified, uncomplicated
CPT/HCPCS: 99282; A9270-GY

== ENCOUNTER 2017-10-13 23:12 | Emergency (ER) | payer BC ==
[2017-10-14] MEDS ORDERED: Bupivacaine 0.25% EPI 200,000* 30 ML SDV INJ ONE (01:33)
[2017-10-14] MEDS ORDERED: HYDROcodone/ACETAMIN 5-325 MG* 1 TAB PO ONE (01:38)
--- NOTE | 2017-10-14 01:45 | ED ---
Throat Pain/Nasal Congestion - HPI Summary HPI Summary: Patient complains of increasing dental pain after having upper left tooth #13 extraction 5 days ago. Currently taking antibiotics. States dentist is out of town until Sunday. Concerned about dry socket as she is a smoker. Denies fever, cough, sore throat, purulent discharge from her mouth, CP, SOB, N/V/D, abdominal pain, change in urinary BM. History is DM. - History of Current Complaint Chief Complaint: EDDentalPain Time Seen by Provider: 10/13/17 23:37 Hx Obtained From: Patient Onset/Duration: Gradual Onset, Lasting Days Severity: Severe Associated Signs And Symptoms: Positive: Negative Cough: None Related History: Smoking - Allergies/Home Medications Allergies/Adverse Reactions: Allergies Allergy/AdvReac Type Severity Reaction Status Date / Time No Known Allergies Allergy Verified 10/13/17 23:21 PMH/Surg Hx/FS Hx/Imm Hx Endocrine/Hematology History: Reports: Hx Diabetes - INSULIN PUMP. 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 - Surgical History Surgery Procedure, Year, and Place: APPENDECTOMY; THYROIDECTOMY NODULES-BENIGN; CTR BILATERAL; RT KNEE SCOPE X2(OSTEOCHONDROMA); PORT PLACEMENT(HAS BEEN REMOVED ); BONE MARROW TRANSPLANT 1987 Infectious Disease History: No Infectious Disease History: Denies: Traveled Outside the US in Last 30 Days - Family History Known Family History: Positive: Diabetes Negative: Hypertension - Social History Alcohol Use: None Hx Substance Use: No - No substances currently, 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 Substance Use Type: Reports: None Substance Use Comment - Amount & Last Used: 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 White bone visible. No sign of infection noted. Triage Information Reviewed: Yes Vital Signs On Initial Exam: Initial Vitals Temp Pulse Resp BP Pulse Ox 97.8 F 97 16 161/101 97 10/13/17 23:20 10/13/17 23:20 10/13/17 23:20 10/13/17 23:20 10/13/17 23:20 Vital Signs Reviewed: Yes Appearance: Positive: Well-Appearing Skin: Positive: Warm Head/Face: Positive: Normal Head/Face Inspection Eyes: Positive: Normal ENT: Positive: Normal ENT inspection Dental: Positive: Other Neck: Positive: Supple Respiratory/Lung Sounds: Positive: Clear to Auscultation Cardiovascular: Positive: Normal Abdomen Description: Positive: Nontender Musculoskeletal: Positive: Normal Neurological: Positive: Normal Psychiatric: Positive: Normal AVPU Assessment: Alert Diagnostics - Vital Signs Vital Signs Temp Pulse Resp BP Pulse Ox 10/13/17 23:20 97.8 F 97 16 161/101 97 - Laboratory Lab Statement: Any lab studies that have been ordered have been reviewed, and results considered in the medical decision making process. EENT Course/Dx - Course Course Of Treatment: Patient complains of increasing dental pain after having upper left tooth #13 extraction 5 days ago. Currently taking antibiotics. States dentist is out of town until Sunday. Concerned about dry socket as she is a smoker. Denies fever, cough, sore throat, purulent discharge from her mouth, CP, SOB, N/V/D, abdominal pain, change in urinary BM. History is DM. Physical exam:No blood clot present at site of tooth extraction. White bone visible. No sign of infection noted. Vital signs normal limits. Patient taking amoxicillin. No dry socket paste available at [facility] pharmacy. Follow-up with dental surgeon or dentist as soon as possible - Diagnoses Provider Diagnoses: Pain, dental Discharge - Sign-Out/Discharge Documenting (check all that apply): Patient Departure - Discharge Plan Condition: Stable Disposition: HOME Prescriptions: HYDROcodone/ACETAMIN 5-325 MG* [[place] 5-325 TAB*] 1 tab PO Q6H PRN 2 Days #6 tab MDD 4 tabs PRN Reason: Pain Patient Education Materials: Toothache (ED), Dry Socket (ED) Referrals: Jo Ann RAGSDALE,Paul Meyers [Primary Care Provider] - Additional Instructions: Follow-up with your dentist or dental surgeon as soon as possible. Continue to take antibiotics. Return to the ED for any new or worsening symptoms - Billing Disposition and Condition Condition: STABLE Disposition: Home
[2017-10-14 02:30] VITALS: BP 138/73
== END 2017-10-14 02:22 | disposition home or self-care (01) ==
LOC: ED 23:12
DX: K08.89 Other specified disorders of teeth and supporting structures (principal); F17.210 Nicotine dependence, cigarettes, uncomplicated; E11.9 Type 2 diabetes mellitus without complications; Z96.41 Presence of insulin pump (external) (internal)
CPT/HCPCS: 99282

== ENCOUNTER 2017-10-27 17:26 | Emergency (ER) | payer BC ==
[2017-10-27] MEDS ORDERED: HYDROmorphone INJ1* 1 MG/ML SYRINGE IV SLOW PU ONE (19:23)
[2017-10-27] MEDS ORDERED: Ondansetron INJ* 2 MG/ML VIAL IV ONE (19:23)
[2017-10-27] MEDS ORDERED: HYDROmorphone INJ1* 1 MG/ML SYRINGE IV SLOW PU PRN (19:23)
[2017-10-27] MEDS ORDERED: NS 0.9% 1000 ML* 2,000 ML IV ONE (19:24)
--- NOTE | 2017-10-27 19:38 | ED ---
Abdominal Pain/Female - HPI Summary HPI Summary: This patient is a 32 year old F presenting to [facility] with a chief complaint of sharp mid abdominal pain since earlier today. The patient reports that pain began as mid-sternal chest pain and radiated to her abdomen and between her shoulder blades. The patient rates the pain 7/10 in severity. Symptoms aggravated by eating food. Symptoms alleviated by nothing. Patient also reports nausea since 1 day ago. Patient denies vomiting. Per triage note, the patient notes excruciating pain in her left leg when she woke up this morning. 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 Patient has type 1 diabetes and has an insulin pump. The patient reports that she has had pancreatitis multiple times in the past and notes that her lipase is not usually elevated. Patient also reports that she has an active ulcer. Patient is supposed to depart for a cruise tomorrow. - History of Current Complaint Chief Complaint: EDAbdPain Stated Complaint: CHEST PAIN Time Seen by Provider: 10/27/17 19:13 Hx Obtained From: Patient Hx Last Menstrual Period: post menopausal Onset/Duration: Gradual Onset, Lasting Hours, Still Present Timing: Constant Severity Currently: Moderate Pain Intensity: 7 Pain Scale Used: 0-10 Numeric Location: Epigastric Radiates: Yes Radiates to: Chest, Other - between shoulder blades, left leg Aggravating Factor(s): Food Alleviating Factor(s): Nothing Associated Signs and Symptoms: Positive: Chest Pain, Nausea. Negative: Vomiting Allergies/Adverse Reactions: Allergies Allergy/AdvReac Type Severity Reaction Status Date / Time No Known Allergies Allergy Verified 10/27/17 17:37 PMH/Surg Hx/FS Hx/Imm Hx Endocrine/Hematology History: Reports: Hx Diabetes - INSULIN PUMP. 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 - Surgical History Surgery Procedure, Year, and Place: APPENDECTOMY; THYROIDECTOMY NODULES-BENIGN; CTR BILATERAL; RT KNEE SCOPE X2(OSTEOCHONDROMA); PORT PLACEMENT(HAS BEEN REMOVED ); BONE MARROW TRANSPLANT 1987 Infectious Disease History: No Infectious Disease History: Denies: Traveled Outside the [place] in Last 30 Days - Family History Known Family History: Positive: Diabetes Negative: Hypertension - Social History Occupation: Employed Full-time Alcohol Use: None Hx Substance Use: No - No substances currently, 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 Negative: Vomiting Positive: Myalgia - positive left leg pain, positive pain between shoulder blades All Other Systems Reviewed And Are Negative: Yes Physical Exam - Summary Physical Exam Summary: Appearance: Well-appearing, Well-nourished, lying in bed comfortably Skin: Warm, dry, no obvious rash Eyes: sclera anicteric, no conjunctival pallor ENT: mucous membranes moist, pharynx appears normal Neck: Supple, nontender Respiratory: Clear to auscultation, no signs of respiratory distress Cardiovascular: Normal S1, S2. No murmurs. Normal distal pulses in tibial and radial bilaterally. Abdomen: Soft, epigastric tenderness, normal active bowel sounds present, Musculoskeletal: Normal, Strength/ROM Intact Neurological: A&Ox3, awake and alert, mentation is normal, speech is fluent and appropriate Psychiatric: affect is normal, does not appear anxious or depressed Triage Information Reviewed: Yes Vital Signs On Initial Exam: Initial Vitals Temp Pulse Resp BP Pulse Ox 97.6 F 104 18 138/86 98 10/27/17 17:37 10/27/17 17:37 10/27/17 17:37 10/27/17 17:37 10/27/17 17:37 Vital Signs Reviewed: Yes Diagnostics - Vital Signs Vital Signs Temp Pulse Resp BP Pulse Ox 10/27/17 17:37 97.6 F 104 18 138/86 98 - Laboratory Result Diagrams: 10/27/17 19:44 10/27/17 19:44 Lab Statement: Any lab studies that have been ordered have been reviewed, and results considered in the medical decision making process. - CT CT Abd/Pelvis CT Interpretation: No Acute Changes - Impression: No CT findings to correlate with patient's symptomology. Specifically no pancreatitis. Flash filling hepatic hemangioma. Dr. Nugent has reviewed this report CT Interpretation Completed By: Radiologist - EKG 19:09 Cardiac Rate: NL - at 89 bpm EKG Rhythm: Sinus Rhythm ST Segment: Normal Ectopy: None EKG Interpretation: NSR with normal intervals and no ischemic changes Abdominal Pain Fem Course/Dx - Diagnoses Provider Diagnoses: Abdominal pain Discharge - Sign-Out/Discharge Documenting (check all that apply): Patient Departure - Discharge Plan Condition: Stable Disposition: HOME Patient Education Materials: Acute Abdominal Pain (ED) Referrals: Jo Ann RAGSDALE,Paul Meyers [Primary Care Provider] - - Billing Disposition and Condition Condition: STABLE Disposition: Home - Attestation Statements Document Initiated by Scribe: Yes Documenting Scribe: Che German Provider For Whom Jason is Documenting (Include Credential): Byron Nugent MD Scribe Attestation: Che Brady, scribed for Byron Nugent MD on 10/28/17 at 0241. Scribe Documentation Reviewed: Yes Provider Attestation: The documentation as recorded by the Che chamorro accurately reflects the service I personally performed and the decisions made by Byron alexandre MD
[2017-10-27 19:54] LABS: ABS Basophils 0.1 10^3/ul (0-0.2); ABS Eosinophils 0.2 10^3/ul (0-0.6); ABS Lymphocytes 3.4 10^3/ul (1.0-4.8); ABS Monocytes 0.5 10^3/ul (0-0.8); ABS Neutrophils 4.3 10^3/ul (1.5-7.7); ABS Nucleated RBC 0 10^3/ul; Eosinophil % 1.9 % (0-6); Hematocrit 37 % (35-47); Hemoglobin 12.3 g/dl (12.0-16.0); Lymphocyte % 40.3 % (25-47); Mean Corpuscular HGB Conc 34 g/dl (31-36); Mean Corpuscular Hemoglobin 29 pg (27-31); Mean Corpuscular Volume 86 fL (80-97); Mean Platelet Volume 8.6 um3 (7.4-10.4); Nucleated Red Blood Cells % 0; Platelet Count 339 10^3/ul (150-450); Red Cell Distribution Width 14 % (10.5-15); White Blood Count 8.4 10^3/ul (3.5-10.8)
[2017-10-27 20:11] LABS: EGFR Non-African American 79.2 (>60)
[2017-10-27 20:12] LABS: Urine Appearance Clear; Urine Blood Negative (Negative); Urine Color Straw; Urine Ketones Negative (Negative); Urine Protein Negative (Negative); Urine Specific Gravity 1.005 (1.010-1.030); Urine Urobilinogen Negative (Negative)
[2017-10-27] MEDS ORDERED: Iodixanol* (CONTRAST) 320 MG/ML 100 ML SDV IV ONE (20:52)
--- NOTE | 2017-10-27 22:04 | RAD ---
EXAM: CT Abdomen and Pelvis With Intravenous Contrast CLINICAL HISTORY: 32 years old, female; Pain; Abdominal pain; Epigastric; Additional info: Epigastric pain, h/o pancreatitis TECHNIQUE: Axial computed tomography images of the abdomen and pelvis with intravenous contrast. All CT scans at this facility use at least one of these dose optimization techniques: automated exposure control; mA and/or kV adjustment per patient size (includes targeted exams where dose is matched to clinical indication); or iterative reconstruction. Coronal and sagittal reformatted images were created and reviewed. CONTRAST: 65 mL of [id number] administered intravenously. COMPARISON: A/P W CT ABD/PEL W 05/22/2017 3:03 AM FINDINGS: Lung bases: Normal. No mass. No consolidation. ABDOMEN: Liver: Near homogeneously enhancing lesion within hepatic segment VII measures 1.8 cm unchanged from prior study (series 2, image 13). No additional liver lesions. Normal liver size. Gallbladder and bile ducts: Normal. No radiopaque calculi. No ductal dilation. Pancreas: Normal. No mass. No ductal dilation. Spleen: Normal. No splenomegaly. Adrenals: Normal. No mass. Kidneys and ureters: Normal. No solid mass. Stomach and bowel: Incompletely distended grossly normal stomach. Normal caliber small bowel. No colonic masses or segmental wall thickening. PELVIS: Appendix: Surgically absent appendix. Bladder: Thin-walled bladder with no focal nodularity, perivesicular stranding, or calcifications. Reproductive: Uterus and ovaries are normal. ABDOMEN and PELVIS: Intraperitoneal space: Normal. No pneumoperitoneum. No ascities. Bones/joints: No fractures. No suspicious bone lesions. Soft tissues: Normal. No hernias. Vasculature: Normal caliber aorta with no evidence of dissection or rupture. Patent IVC. Lymph nodes: Normal. No enlarged lymph nodes. IMPRESSION: 1. No CT findings to correlate with patient's symptomatology. Specifically no increased size. 2. Flash filling hepatic hemangioma.
[2017-10-27 22:42] VITALS: BP 130/84
== END 2017-10-27 23:04 | disposition home or self-care (01) ==
LOC: ED 17:26
DX: R10.13 Epigastric pain (principal); R07.9 Chest pain, unspecified; R11.0 Nausea; F17.210 Nicotine dependence, cigarettes, uncomplicated
CPT/HCPCS: 36415; 74177; 80053; 81003; 83605; 83690; 84478; 85025; 93005; 96374; 99283; J1170; J2405; Q9967

== ENCOUNTER 2018-01-20 22:24 | Emergency (ER) | payer BC ==
[2018-01-20] MEDS ORDERED: Metoclopramide IV* 5 MG/ML 2 ML VIAL IV SLOW PU ONE (23:02)
[2018-01-20] MEDS ORDERED: Morphine VIAL* 4 MG/ML VIAL (1 ml vial) IV PRN (23:02)
[2018-01-20] MEDS ORDERED: Famotidine IV* 10 MG/ML 2 ML (20 mg) IV SLOW PU ONE (23:02)
--- NOTE | 2018-01-20 23:05 | ED ---
HPI Chest Pain - HPI Summary HPI Summary: Patient is a 32 y/o F w/ c/o epigastric/chest pain onsetting two days ago. PMHx of gastritis. Today, while at work at [employer], patient felt nauseous, took Zofran at 1600. Some time afterwards, patient began to experience an exacerbation of chest and epigastric pain. She also began to experience shooting pain up to the shoulder at LUE and radiation of pain to her back. Patient also reports intermittent discomfort at her jaw, which she notes she has not experienced before. On triage, pain is rated 6/10, nothing is noted to aggravate/alleviate Sx. Home medications and allergies are reviewed. - History of Current Complaint Chief Complaint: EDChestPainROMI Time Seen by Provider: 01/20/18 22:49 Hx Obtained From: Patient Hx Last Menstrual Period: post menopausal Onset/Duration: Started Days Ago - onset two days ago, Still Present, Worse Since - today Timing: Constant, Lasting Days Initial Severity: Mild Current Severity: Moderate - 6/10 Pain Intensity: 6 Pain Scale Used: 0-10 Numeric - 6/10 Chest Pain Location: Diffuse Chest Pain Radiates: Yes Chest Pain Radiates To:: Back Aggravating Factor(s): Nothing Alleviating Factor(s): Nothing Associated Signs and Symptoms: Positive: Chest Pain, Nausea, Back Pain, Abdominal Pain - epigastric, Other: - LUE pain, jaw pain - Allergy/Home Medications Allergies/Adverse Reactions: Allergies Allergy/AdvReac Type Severity Reaction Status Date / Time morphine Allergy Itching Verified 01/20/18 23:54 PMH/Surg Hx/FS Hx/Imm Hx Endocrine/Hematology History: Reports: Hx Diabetes - INSULIN PUMP. 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 - Surgical History Surgery Procedure, Year, and Place: APPENDECTOMY; THYROIDECTOMY NODULES-BENIGN; CTR BILATERAL; RT KNEE SCOPE X2(OSTEOCHONDROMA); PORT PLACEMENT(HAS BEEN REMOVED ); BONE MARROW TRANSPLANT 1987 Infectious Disease History: No Infectious Disease History: Denies: Traveled Outside the [place] in Last 30 Days - Family History Known Family History: Positive: Diabetes Negative: Hypertension - Social History Alcohol Use: None Hx Substance Use: No - No substances currently, 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 GENERAL: Patient is a well-developed and nourished female who is lying comfortable in the stretcher. Patient is not in any acute respiratory distress. HEAD AND FACE: No signs of trauma. No ecchymosis, hematomas or skull depressions. No sinus tenderness. EYES: PERRLA, EOMI x 2, No injected conjunctiva, no nystagmus. EARS: Hearing grossly intact. Ear canals and tympanic membranes are within normal limits. MOUTH: Oropharynx within normal limits. NECK: Supple, trachea is midline, no adenopathy, no JVD, no carotid bruit, no c- spine tenderness, neck with full ROM. CHEST: Symmetric, no tenderness at palpation LUNGS: Clear to auscultation bilaterally. No wheezing or crackles. CVS: Regular rate and rhythm, S1 and S2 present, no murmurs or gallops appreciated. ABDOMEN: Soft, epigastric tenderness. No signs of distention. No rebound no guarding, and no masses palpated. Bowel sounds are normal. EXTREMITIES: FROM in all major joints, no edema, no cyanosis or clubbing. NEURO: Alert and oriented x 3. No acute neurological deficits. Speech is normal and follows commands. SKIN: Dry and warm Triage Information Reviewed: Yes Vital Signs On Initial Exam: Initial Vitals Temp Pulse Resp BP Pulse Ox 98.6 F 102 18 138/87 100 01/20/18 22:32 01/20/18 22:32 01/20/18 22:32 01/20/18 22:32 01/20/18 22:32 Vital Signs Reviewed: Yes Diagnostics - Vital Signs Vital Signs Temp Pulse Resp BP Pulse Ox 01/20/18 22:41 102 15 131/92 100 01/20/18 22:40 16 01/20/18 22:32 98.6 F 102 18 138/87 100 - Laboratory Result Diagrams: 01/20/18 23:25 01/20/18 23:25 Lab Statement: Any lab studies that have been ordered have been reviewed, and results considered in the medical decision making process. - Ultrasound No standard instances Ultrasound Interpretation Completed By: Radiologist Summary of Ultrasound Findings: GALLBLADDER US IMPRESSION: 1. No sonographic findings to correlate with patient's symptomatology. 2. Hepatic steatosis with 2 hepatic lesions as seen previously likely. hemangiomas. THIS REPORT WAS REVIEWED BY ED PHYSICIAN. - EKG 2025 Cardiac Rate: Tachycardia - RATE OF 102 BPM EKG Rhythm: Sinus Tachycardia - EKG showed sinus tachycardia with rate of 102 BPM. Normal axis. Normal interval. No ischemic changes. Summary of EKG Findings: EKG showed sinus tachycardia with rate of 102 BPM. Normal axis. Normal interval. No ischemic changes. 8 Cardiac Rate: Tachycardia - RATE OF 102 BPM EKG Rhythm: Sinus Tachycardia - EKG showed sinus tachycardia with rate of 102 BPM. Normal axis. Normal interval. No ischemic changes. Summary of EKG Findings: EKG showed sinus tachycardia with rate of 102 BPM. Normal axis. Normal interval. No ischemic changes. Re-Evaluation - Re-Evaluation First Eval Re-Evaluation Time: 02:34 Comment: Results of labs and tests were discussed with patient. Patient will be discharged to home and is instructed to follow up with PCP. Patient is agreeable with this plan. At this time, patient asked for hydrocodone for her back pain. Chest Pain Course/Dx - Course Course Of Treatment: Patient is a 32 y/o F w/ c/o epigastric/chest pain onsetting two days ago. PMHx of gastritis. Today, while at work at [employer], patient felt nauseous, took Zofran at 1600. Some time afterwards, patient began to experience an exacerbation of chest and epigastric pain. She also began to experience shooting pain up to the shoulder at LUE and radiation of pain to her back. Patient also reports intermittent discomfort at her jaw, which she notes she has not experienced before. However, back and jaw pain are reported to have lasted ten minutes, patient only reports chest pain and LUE pain in the room. On physical exam, epigastric tenderness is noted. EKG showed sinus tachycardia with rate of 102 BPM. Normal axis. Normal interval. No ischemic changes. GALLBLADDER US IMPRESSION: 1. No sonographic findings to correlate with patient 's symptomatology. 2. Hepatic steatosis with 2 hepatic lesions as seen previously likely. hemangiomas. Labs showed lipase 18, amylase 27, magnesium 1.5, calcium 11.1, lactic acid 1, glucose 75, potassium 3.4, WBC 9.5, CRP 1.69. First trop was 0, second was 0.01. During ED course, patient received Pepcid 20 mg IV SLOW PU ED ONCE ONE, Dilaudid 1 mg IV ED ONCE ONE, Relgan 10 mg IV SLOW PU ONCE ONE, and Klor Con Er Tab 40 meq PO ED ONCE ONE. Results of labs and tests were discussed with patient. Patient will be discharged to home and is instructed to follow up with PCP. Patient is agreeable with this plan. At this time, patient asked for hydrocodone for her back pain as well. - Diagnoses Provider Diagnoses: Gastritis Discharge - Sign-Out/Discharge Documenting (check all that apply): Patient Departure - discharge - Discharge Plan Condition: Stable Disposition: HOME Prescriptions: Hydrocodone/APAP 5/300 (NF) [Vicodin 5 MG/300 MG(NF)] 1 tab PO Q8H PRN #6 tab MDD 3 PRN Reason: Pain Pantoprazole TAB (NF) [Protonix TAB (NF)] 40 mg PO DAILY #30 tab Patient Education Materials: Gastritis (ED) Referrals: Jo Ann RAGSDALE,Paul Meyers [Primary Care Provider] - 2 Days Additional Instructions: RETURN TO THE EMERGENCY DEPARTMENT FOR CHANGING OR WORSENING SYMPTOMS. FOLLOW UP WITH PRIMARY CARE PHYSICIAN IN 1-2 DAYS. - Attestation Statements Document Initiated by Scribe: Yes Documenting Scribe: WILLY BARKER Provider For Whom Jason is Documenting (Include Credential): LIZBET EMERY MD Scribe Attestation: IWILLY , scribed for LIZBET EMERY MD on 01/21/18 at 0314.
[2018-01-20 23:34] LABS: ABS Basophils 0.1 10^3/ul (0-0.2); ABS Eosinophils 0.2 10^3/ul (0-0.6); ABS Lymphocytes 3.8 10^3/ul (1.0-4.8); ABS Monocytes 0.6 10^3/ul (0-0.8); ABS Neutrophils 4.8 10^3/ul (1.5-7.7); ABS Nucleated RBC 0 10^3/ul; Eosinophil % 2.4 % (0-6); Hematocrit 37 % (35-47); Hemoglobin 12.3 g/dl (12.0-16.0); Lymphocyte % 40.2 % (25-47); Mean Corpuscular HGB Conc 34 g/dl (31-36); Mean Corpuscular Hemoglobin 28 pg (27-31); Mean Corpuscular Volume 84 fL (80-97); Mean Platelet Volume 8.2 fL (7.4-10.4); Nucleated Red Blood Cells % 0; Platelet Count 367 10^3/ul (150-450); Red Blood Count 4.37 10^6/ul (4.00-5.40); Red Cell Distribution Width 14 % (10.5-15); White Blood Count 9.5 10^3/ul (3.5-10.8)
[2018-01-20] MEDS ORDERED: HYDROmorphone INJ* 2 MG/ML CARPUJECT SYRINGE IV SLOW PU ONE (23:34)
[2018-01-20] MEDS ORDERED: HYDROmorphone INJ1* 1 MG/ML SYRINGE IV ONE (23:45)
[2018-01-20 23:49] LABS: EGFR Non-African American 82.6 (>60)
[2018-01-21] MEDS ORDERED: Potassium Chlor TAB* 20 MEQ TAB.ER PO ONE (00:11)
[2018-01-21 02:28] VITALS: BP 100/57
== END 2018-01-21 02:43 | disposition home or self-care (01) ==
LOC: ED 22:24
DX: K29.70 Gastritis, unspecified, without bleeding (principal); E11.9 Type 2 diabetes mellitus without complications; Z79.4 Long term (current) use of insulin; Z88.5 Allergy status to narcotic agent
CPT/HCPCS: 36415; 76705; 80053; 82150; 83605; 83690; 83735; 84484; 85025; 85610; 85730; 86140; 93005; 96374; 96375; 96376; 99284; A9270-GY; J1170; J2270; J2765

== ENCOUNTER 2018-02-22 09:41 | Emergency (ER) | payer BC ==
[2018-02-22] MEDS ORDERED: HYDROmorphone INJ1* 1 MG/ML SYRINGE ONE (10:10)
[2018-02-22] MEDS: Ondansetron INJ* 2 MG/ML VIAL IV ONE (10:23)
[2018-02-22] MEDS: HYDROmorphone INJ1* 1 MG/ML SYRINGE IV SLOW PU ONE (10:24)
[2018-02-22] MEDS: HYDROmorphone INJ* 2 MG/ML CARPUJECT SYRINGE IV SLOW PU ONE (10:25)
--- NOTE | 2018-02-22 10:26 | ED ---
Abdominal Pain/Female - HPI Summary HPI Summary: Patient is a 32-year-old female who presents emergency department for epigastric abdominal pain times several days. Patient notes a history of gastritis and pancreatitis. She had numerous home medications. Associate symptoms of nausea. Patient has been taking Zofran and Carafate with little relief. She also notes upper respiratory symptoms of nasal congestion and sore throat times several days. Symptoms are moderate in severity. No current modifying factors. - History of Current Complaint Chief Complaint: EDAbdPain Stated Complaint: STOMACH PAINS Time Seen by Provider: 02/22/18 09:47 Hx Obtained From: Patient Hx Last Menstrual Period: post menopausal Pain Intensity: 9 Allergies/Adverse Reactions: Allergies Allergy/AdvReac Type Severity Reaction Status Date / Time morphine Allergy Itching Verified 01/20/18 23:54 PMH/Surg Hx/FS Hx/Imm Hx Previously Healthy: Yes Endocrine/Hematology History: Reports: Hx Diabetes - INSULIN PUMP. 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 - Surgical History Surgery Procedure, Year, and Place: APPENDECTOMY; THYROIDECTOMY NODULES-BENIGN; CTR BILATERAL; RT KNEE SCOPE X2(OSTEOCHONDROMA); PORT PLACEMENT(HAS BEEN REMOVED ); BONE MARROW TRANSPLANT 1987 Infectious Disease History: No Infectious Disease History: Denies: Traveled Outside the [place] in Last 30 Days - Family History Known Family History: Positive: Diabetes Negative: Hypertension - Social History Occupation: Employed Full-time Lives: Alone Alcohol Use: None Hx Substance Use: No - No substances currently, 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 Negative: Vomiting, Diarrhea Genitourinary: Negative Skin: Negative Neurological: Negative All Other Systems Reviewed And Are Negative: Yes Physical Exam Triage Information Reviewed: Yes Vital Signs On Initial Exam: Initial Vitals Temp Pulse Resp BP Pulse Ox 97 F 103 20 148/120 96 02/22/18 09:44 02/22/18 09:44 02/22/18 09:44 02/22/18 09:44 02/22/18 09:44 Vital Signs Reviewed: Yes Appearance: Positive: Pain Distress - Patient lying in bed in no acute distress. Appears uncomfortable but nontoxic. Skin: Positive: Warm, Dry Head/Face: Positive: Normal Head/Face Inspection Eyes: Positive: Normal, EOMI Neck: Positive: Supple Respiratory/Lung Sounds: Positive: Clear to Auscultation, Breath Sounds Present Cardiovascular: Positive: Normal, RRR Abdomen Description: Positive: Other: - Abdomen is soft with marked tenderness in the epigastric region and left upper quadrant. No rebound tenderness or guarding. Neurological: Positive: Normal, CN Intact II-III Psychiatric: Positive: Affect/Mood Appropriate Diagnostics - Vital Signs Vital Signs Temp Pulse Resp BP Pulse Ox 02/22/18 09:44 97 F 103 20 148/120 96 - Laboratory Result Diagrams: 02/22/18 10:20 02/22/18 10:20 Lab Statement: Any lab studies that have been ordered have been reviewed, and results considered in the medical decision making process. Abdominal Pain Fem Course/Dx - Course Course Of Treatment: Patient presenting with exacerbation of sick pain. Patient states she was struck numerous pain medications before and the only pain medication the seems to work for her is dilaudid. She does note that liquid Carafate usually works for her as well which she does not have. We'll check basic. Patient given IV pain medication and Zofran. CBC shows mild leukocytosis. Labs otherwise unremarkable. Reexamination patient is feeling mildly better. She is given a GI cocktail with better improvement of her symptoms. We'll write for liquid Carafate and a few days of pain medication. 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 Advised patient to call her GI doctor and PCP Sunday for close follow up appointment. We'll return to the ER if symptoms change or worsen. Patient understands and agrees with plan. - Diagnoses Differential Diagnosis: Positive: Appendicitis, Bowel Obstruction, Constipation , Diverticulitis, Ectopic , Gall Bladder Disease, Irritable Bowel Syndrome, Pancreatitis, , Renal Colic Provider Diagnoses: Gastritis Discharge - Sign-Out/Discharge Documenting (check all that apply): Patient Departure - Discharge Plan Condition: Improved Disposition: HOME Prescriptions: Hydrocodone/Acetaminophen [Hydrocodone/Acetaminophen 5-325 mg] 1 tab PO Q6H #10 tab MDD 4 tablets Sucralfate SUSP (NF) [Carafate SUSP (NF)] 1 gm PO Q6H #120 ml Sucralfate SUSP (NF) [Carafate SUSP (NF)] 1 gm PO Q6H #120 ml Patient Education Materials: Gastritis (ED), Upper Respiratory Infection (ED) Forms: *Work Release Referrals: Jo Ann RAGSDALE,Paul Meyers [Primary Care Provider] - Additional Instructions: Schedule a follow up appointment with your PCP and GI doctor Medication as directed Return to ER i f symptoms change or worsen - Billing Disposition and Condition Condition: IMPROVED Disposition: Home
[2018-02-22 10:42] LABS: ABS Basophils 0 10^3/ul (0-0.2); ABS Eosinophils 0.3 10^3/ul (0-0.6); ABS Lymphocytes 2.4 10^3/ul (1.0-4.8); ABS Neutrophils 7.8 10^3/ul (1.5-7.7); ABS Nucleated RBC 0 10^3/ul; Eosinophil % 2.5 %; Hematocrit 36 % (35-47); Lymphocyte % 20.6 %; Mean Corpuscular HGB Conc 34 g/dl (31-36); Mean Corpuscular Hemoglobin 29 pg (27-31); Mean Corpuscular Volume 85 fL (80-97); Mean Platelet Volume 8.6 fL (7.4-10.4); Nucleated Red Blood Cells % 0; Platelet Count 349 10^3/ul (150-450); Red Blood Count 4.21 10^6/ul (4.00-5.40); Red Cell Distribution Width 14 % (10.5-15); White Blood Count 11.5 10^3/ul (3.5-10.8)
[2018-02-22 11:05] LABS: HCG Pregnancy 1.25 mIU/mL
[2018-02-22 11:19] LABS: Albumin 4.7 g/dL (3.2-5.2); Calcium 10.5 mg/dL (8.6-10.3); Globulin 2.4 g/dL (2-4); Potassium 3.9 mmol/L (3.5-5.0); Total Bilirubin 0.3 mg/dL (0.2-1.0); Total Protein 7.1 g/dL (6.4-8.9)
[2018-02-22] MEDS: Lidocaine 2% VISCOUS* 15 ML UDC PO ONE (12:25)
[2018-02-22] MEDS: Al Hydrox/Mg Hydrox/Simet LIQ* 30 ML UDC PO ONE (12:25)
[2018-02-22 13:40] LABS: Urine Appearance Clear; Urine Bilirubin Negative (Negative); Urine Blood Negative (Negative); Urine Color Yellow; Urine Glucose Negative (Negative); Urine Ketones Negative (Negative); Urine Nitrite Negative (Negative); Urine Protein Negative (Negative); Urine Specific Gravity 1.021 (1.010-1.030); Urine Urobilinogen Negative (Negative)
[2018-02-22 14:03] VITALS: BP 119/71
== END 2018-02-22 14:02 | disposition home or self-care (01) ==
LOC: ED 09:41
DX: K29.70 Gastritis, unspecified, without bleeding (principal); E11.9 Type 2 diabetes mellitus without complications; I10 Essential (primary) hypertension; Z79.4 Long term (current) use of insulin
CPT/HCPCS: 36415; 80053; 81003; 83690; 84702; 85025; 87651; 96374; 96375; 96376; 99282; A9270-GY; J1170; J2405

== ENCOUNTER 2018-05-15 23:10 | Emergency (ER) | payer BC ==
[2018-05-15] MEDS ORDERED: oxyCODONE TAB* 5 MG TAB PO ONE (23:40)
--- NOTE | 2018-05-16 00:27 | ED ---
Skin Complaint - HPI Summary HPI Summary: Patient complains of chin pain, swelling, erythema 3 days. Patient states she popped a pimple there and symptoms develop subsequently. Complains of associated pain with chewing or movement of face. Also complains of lump underneath chin 2 weeks. Denies fever, cough, sore throat, CP, SOB, N/V/D, abdominal pain, change in urine, change in BM. Medical history is DM 2, HTN. - History of Current Complaint Chief Complaint: EDRashSkinAbscess Time Seen by Provider: 05/15/18 23:35 Stated Complaint: POSSIBLE CELLULITIS PER PT Hx Obtained From: Patient Hx Last Menstrual Period: post menopausal Onset/Duration: Started Days Ago Timing: Constant Onset Severity: Severe Current Severity: Severe Pain Intensity: 10 Pain Scale Used: 0-10 Numeric Skin Location: Face Aggravating Symptom(s): Touch Alleviating Symptom(s): Nothing - Allergy/Home Medications Allergies/Adverse Reactions: Allergies Allergy/AdvReac Type Severity Reaction Status Date / Time morphine Allergy Itching Verified 05/15/18 23:18 PMH/Surg Hx/FS Hx/Imm Hx Endocrine/Hematology History: Reports: Hx Diabetes - INSULIN PUMP. 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 - Surgical History Surgery Procedure, Year, and Place: APPENDECTOMY; THYROIDECTOMY NODULES-BENIGN; CTR BILATERAL; RT KNEE SCOPE X2(OSTEOCHONDROMA); PORT PLACEMENT(HAS BEEN REMOVED ); BONE MARROW TRANSPLANT 1987 Infectious Disease History: No Infectious Disease History: Denies: Traveled Outside the [place] in Last 30 Days - Family History Known Family History: Positive: Diabetes Negative: Hypertension - Social History Alcohol Use: None Hx Substance Use: No - No substances currently, 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 No purulent drainage or obvious evidence of purulent matter. Intraoral exam unremarkable. Likely swollen lymph node inferior and posterior to chin. Triage Information Reviewed: Yes Vital Signs On Initial Exam: Initial Vitals Temp Pulse Resp BP Pulse Ox 98.2 F 97 16 136/83 100 05/15/18 23:10 05/15/18 23:10 05/15/18 23:10 05/15/18 23:10 05/15/18 23:10 Vital Signs Reviewed: Yes Appearance: Positive: Well-Appearing Skin: Positive: Warm Head/Face: Positive: Normal Head/Face Inspection Eyes: Positive: Normal ENT: Positive: Normal ENT inspection Neck: Positive: Supple Respiratory/Lung Sounds: Positive: Clear to Auscultation Cardiovascular: Positive: Normal Abdomen Description: Positive: Nontender Musculoskeletal: Positive: Normal Neurological: Positive: Normal Psychiatric: Positive: Normal AVPU Assessment: Alert - [place] Coma Scale Best Eye Response: 4 - Spontaneous Best Motor Response: 6 - Obeys Commands Best Verbal Response: 5 - Oriented Coma Scale Total: 15 Diagnostics - Vital Signs Vital Signs Temp Pulse Resp BP Pulse Ox 05/15/18 23:10 98.2 F 97 16 136/83 100 - Laboratory Lab Statement: Any lab studies that have been ordered have been reviewed, and results considered in the medical decision making process. Course/Dx - Course Course Of Treatment: Patient complains of chin pain, swelling, erythema 3 days. Patient states she popped a pimple there and symptoms develop subsequently. Complains of associated pain with chewing or movement of face. Also complains of lump underneath chin 2 weeks. Denies fever, cough, sore throat, CP, SOB, N/V/D, abdominal pain, change in urine, change in BM. Medical history is DM 2, HTN. Physical exam:Swelling, erythema, warmth to chin. No purulent drainage or obvious evidence of purulent matter. Intraoral exam unremarkable. Likely swollen lymph node inferior and posterior to chin. Vital signs within normal limits. Ultrasound states swollen lymph node inferior and posterior to chin. No significant drainable abscess. Diagnosis cellulitis. Trial of by mouth antibiotics - Diagnoses Provider Diagnoses: Cellulitis Discharge - Sign-Out/Discharge Documenting (check all that apply): Patient Departure Patient Received Moderate/Deep Sedation with Procedure: No - Discharge Plan Condition: Stable Disposition: HOME Prescriptions: Cephalexin CAP* [Keflex CAP*] 500 mg PO TID 7 Days #21 cap Oxycodone HCl 5 mg PO Q6HR 2 Days #8 tablet MDD 4 tabs Patient Education Materials: Cellulitis (ED) Forms: *Work Release Referrals: Jo Ann RAGSDALE,Paul Meyers [Primary Care Provider] - Additional Instructions: Take antibiotics as directed. Keep area clean and dry. Eat soft foods until antibiotics start to work. Return to the ED for any new or worsening symptoms. - Billing Disposition and Condition Condition: STABLE Disposition: Home
[2018-05-16] MEDS ORDERED: oxyCODONE TAB* 5 MG TAB PO ONE (01:41)
[2018-05-16] MEDS ORDERED: Cephalexin CAP* 500 MG PO ONE (01:41)
[2018-05-16 02:22] VITALS: BP 129/68
== END 2018-05-16 01:40 | disposition home or self-care (01) ==
LOC: ED 23:10
DX: L03.211 Cellulitis of face (principal); R60.9 Edema, unspecified; E11.9 Type 2 diabetes mellitus without complications; Z96.41 Presence of insulin pump (external) (internal); I10 Essential (primary) hypertension; F17.210 Nicotine dependence, cigarettes, uncomplicated; Z88.0 Allergy status to penicillin
CPT/HCPCS: 76536; 99282; A9270-GY

== ENCOUNTER 2018-05-23 22:55 | Emergency (ER) | payer BC ==
[2018-05-24] MEDS ORDERED: Clindamycin CAP* 150 MG PO ONE (00:54)
[2018-05-24] MEDS ORDERED: HYDROcodone/ACETAMIN 5-325 MG* 1 TAB PO ONE (00:54)
--- NOTE | 2018-05-24 01:03 | ED ---
Skin Complaint - HPI Summary HPI Summary: 32-year-old female presents with complaints of cellulitis to her chin. Patient was seen at this facility on 05/15/2018 for same complaint and had been having 3 days of erythema and tenderness to her chin at that time. She was started on cephalexin 500 mg 3 times a day 7 days which she completed yesterday. States that there has been some improvement in the symptoms however has not completely resolved. Has noted a small amount of drainage over the past 7 days although none in the past 2 days. She notes that it is very painful. Has tried acetaminophen and naproxen with only minimal relief. She was given a prescription for oxycodone at her last visit however she is feels that these were too strong. Denies fever or chills. - History of Current Complaint Chief Complaint: EDRashSkinAbscess Time Seen by Provider: 05/23/18 23:50 Stated Complaint: PAIN CONTROL PER PT Hx Obtained From: Patient Hx Last Menstrual Period: post menopausal Pain Intensity: 7 - Allergy/Home Medications Allergies/Adverse Reactions: Allergies Allergy/AdvReac Type Severity Reaction Status Date / Time morphine Allergy Itching Verified 05/23/18 23:05 PMH/Surg Hx/FS Hx/Imm Hx Endocrine/Hematology History: Reports: Hx Diabetes - INSULIN PUMP. 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 - Surgical History Surgery Procedure, Year, and Place: APPENDECTOMY; THYROIDECTOMY NODULES-BENIGN; CTR BILATERAL; RT KNEE SCOPE X2(OSTEOCHONDROMA); PORT PLACEMENT(HAS BEEN REMOVED ); BONE MARROW TRANSPLANT 1987 - Immunization History Immunizations Up to Date: Yes Infectious Disease History: No Infectious Disease History: Denies: Traveled Outside the [place] in Last 30 Days - Family History Known Family History: Positive: Diabetes Negative: Hypertension - Social History Occupation: Employed Full-time Lives: With Family Alcohol Use: None Hx Substance Use: No - No substances currently, 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 Substance Use Type: Reports: None Substance Use Comment - Amount & Last Used: 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 NECK: Neck supple, non-tender without lymphadenopathy. CARDIAC: Normal S1 and S2. No S3, S4 or murmurs. Rhythm is regular. There is no peripheral edema, cyanosis or pallor. Extremities are warm and well perfused. Capillary refill is less than 2 seconds. Peripheral pulses intact. LUNGS: Clear to auscultation without rales, rhonchi, wheezing or diminished breath sounds. ABDOMEN: Positive bowel sounds. Soft, nondistended, nontender. No guarding or rebound. No masses or hepatosplenomegally. MUSKULOSKELETAL: ROM intact to all extremities. No joint erythema or tenderness. Normal muscular development. Normal gait. SKIN: 2 cm x 1 cm area of induration with erythema of the surrounding tissue covering an 3 cm diameter. No fluctuance or drainage noted. Triage Information Reviewed: Yes Vital Signs On Initial Exam: Initial Vitals Temp Pulse Resp BP Pulse Ox 98.1 F 108 16 126/95 98 05/23/18 23:00 05/23/18 23:00 05/23/18 23:00 05/23/18 23:00 05/23/18 23:00 Vital Signs Reviewed: Yes Diagnostics - Vital Signs Vital Signs Temp Pulse Resp BP Pulse Ox 05/23/18 23:00 98.1 F 108 16 126/95 98 - Laboratory Lab Statement: Any lab studies that have been ordered have been reviewed, and results considered in the medical decision making process. Course/Dx - Course Course Of Treatment: 32-year-old female presents with complaints of cellulitis to her chin. Patient was seen at this facility on 05/15/2018 for same complaint and had been having 3 days of erythema and tenderness to her chin at that time. She was started on cephalexin 500 mg 3 times a day 7 days which she completed yesterday. States that there has been some improvement in the symptoms however has not completely resolved. Has noted a small amount of drainage over the past 7 days although none in the past 2 days. She notes that it is very painful. Has tried acetaminophen and naproxen with only minimal relief. She was given a prescription for oxycodone at her last visit however she is feels that these were too strong. Denies fever or chills. She is afebrile at this time. Vital signs stable. Exam was remarkable for a 2 cm x 1 cm area of induration with erythema in the surrounding tissues 3 cm in diameter. No fluctuance or drainage is noted. I will continue her on antibiotics for cellulitis of the chin. We'll switch her to clindamycin 300 mg 3 times a day 7 days and also have her use mupirocin ointment twice a day to cover for MRSA. She is to return here or follow up with her primary care provider in 3-5 days if symptoms do not improve. Anticipatory guidance and warning symptoms reviewed with the patient. Verbalizes understanding agrees with plan of care. - Differential Diagnoses - Skin Complaint Differential Diagnoses: Abscess, Cellulitis, MRSA - Diagnoses Provider Diagnoses: Cellulitis of chin Discharge - Sign-Out/Discharge Documenting (check all that apply): Patient Departure Patient Received Moderate/Deep Sedation with Procedure: No - Discharge Plan Condition: Stable Disposition: HOME Prescriptions: Clindamycin Cap(NF) [Clindamycin Cap 300 mg Cap(NF)] 300 mg PO TID 7 Days #21 cap Hydrocodone/Acetaminophen [Hydrocodone/Acetaminophen 5-325 mg] 1 tab PO Q8HR PRN #9 tab MDD 3 PRN Reason: Pain Mupirocin 2% OINT* [Bactroban 2 % Oint*] 1 applic TOPICAL BID #1 tube Patient Education Materials: Cellulitis (ED) Referrals: Jo Ann RAGSDALE,Paul Meyers [Primary Care Provider] - (If no improvement.) Additional Instructions: We will change your antibiotic to cover for possible MRSA since your symptoms have only improved slightly. Take clindamycin 300 mg 1 capsule three times a day for 7 days. We gave you the first dose in the emergency room. Take with food and use a probiotic daily to help prevent the possible GI side effects associated with this antibiotic. Use mupirocin ointment to the affected area twice a day. Take naproxen (Aleve) every 12 hours with food for then next several days to help with the pain then may take as needed. Use hydrocodone-acetaminophen 5 mg-325 mg 1 tablet every 8 hours as needed for severe pain. We gave you a dose in the emergency room. This will cause drowsiness so do not take and drive or operate machinery while taking. Return here or follow up with your primary care provider in 3-5 days if no improvement in symptoms. - Billing Disposition and Condition Condition: STABLE Disposition: Home
[2018-05-24 01:06] VITALS: BP 144/81
== END 2018-05-24 01:30 | disposition home or self-care (01) ==
LOC: ED 22:55
DX: L03.211 Cellulitis of face (principal); F17.210 Nicotine dependence, cigarettes, uncomplicated; Z88.6 Allergy status to analgesic agent; E03.9 Hypothyroidism, unspecified; E11.9 Type 2 diabetes mellitus without complications; Z96.41 Presence of insulin pump (external) (internal); Z79.4 Long term (current) use of insulin; E78.1 Pure hyperglyceridemia
CPT/HCPCS: 99282; A9270-GY

== ENCOUNTER 2018-12-21 01:01 | Emergency (ER) | payer BC ==
[2018-12-21 01:06] VITALS: BP 142/98
== END 2018-12-21 01:18 | disposition left against medical advice (07) ==
LOC: ED 01:01
DX: E16.2 Hypoglycemia, unspecified (principal); Z53.21 Procedure and treatment not carried out due to patient leaving prior to being seen by health care provider

== ENCOUNTER 2019-02-16 18:41 | Emergency (ER) | payer BC ==
--- OUTSIDE RECORDS SUMMARY | 2019-02-16 18:53 | XMS REPORT | Summary of Care ---
:[address] [facility] Address [address] [place] [address] Care Team Providers Name Role Phone Paul Cherry MD Primary Care Provider Reason for Visit Reason Comments Diabetes Encounter Details Date Type Department Care Team Description 01/15/2019 Office Visit Sue Mckeon Type 2 diabetes mellitus with hyperglycemia, with long-term current use of insulin (Primary Dx); [place], [place] Long-term insulin use; [address] Menopause ovarian failure; [place] [address] Postoperative hypothyroidism; [place], [place] [phone] Hypertriglyceridemia; Hypercalcemia; [phone] S/P thyroidectomy (2001) Allergies Active Allergy Reactions Severity Noted Date Comments Influenza Vaccines Swelling High 03/03/2015 documented as of this encounter (statuses as of 01/15/2019) Medications Medication Sig Dispensed Refills Start Date End Date Status ramipril (ALTACE) 2.5 Take 2.5 mg by 0 Active MG capsule mouth daily. rosuvastatin (CRESTOR) Take 20 mg by 0 Active 20 MG tablet mouth daily. Icosapent Ethyl Take 2 capsules by 0 Active (VASCEPA) 1 G CAPS mouth Two Times Daily Multiple Take 1 tablet by 0 Active Vitamins-Minerals mouth daily. (MULTIVITAMIN WITH MINERALS) tablet BuPROPion HCl Take 100 mg by 0 Active (WELLBUTRIN PO) mouth insulin glargine Use as directed in 1 vial 5 08/29/2016 Active (LANTUS) 100 UNIT/ML case of pump vialIndications: Type failure. Inject 2 diabetes mellitus 48 units once with hyperglycemia, daily. with long-term current use of insulin Additional information Patient not taking. Reported on 01/15/2019 11:10 AM Choline Fenofibrate Take 135 mg by 90 capsule 1 03/21/2017 Active (TRILIPIX) 135 MG capsule mouth daily omeprazole (PRILOSEC) 40 Take 40 mg by mouth 0 Active MG capsule daily Insulin Disposable Pump Use as directed. 0 Active (OMNIPOD) MISC ondansetron (ZOFRAN-ODT) Take 4 mg by mouth 0 Active 4 MG disintegrating every 8 (eight) tablet hours as needed for Nausea glucose blood (FREESTYLE Use as instructed, 450 each 1 10/11/20182019 Active TEST STRIPS) test test up to 5 times stripIndications: Type 2 daily. DX E11.65 diabetes mellitus with hyperglycemia, with long-term current use of insulin insulin lispro (HUMALOG) Use as directed via 120 mL 1 10/11/2018 Active 100 UNIT/ML insulin pump. vialIndications: Type 2 Total daily dose diabetes mellitus with not to exceed 135 hyperglycemia, with units with long-term current use of titration and insulin priming. Dx: E11.65 Lancet Device MISC Use as directed. 1 each 0 10/11/2018 Active Contour Lancet Device pioglitazone (ACTOS) 15 Take 1 tablet by 30 tablet 5 10/11/2018 Active MG tabletIndications: mouth daily Type 2 diabetes mellitus with hyperglycemia, with long-term current use of insulin SYNTHROID 137 MCG tablet Take 1 tablet by 90 tablet 1 10/11/20182019 Active mouth daily As directed CLIMARA PRO 0.045-0.015 Place 1 patch onto 4 patch 4 12/03/2018 Active MG/DAYIndications: the skin once a Menopause ovarian failure week As directed. Glucagon 3 MG/DOSE Nasal 1 each by Nasal 2 each 5 01/15/2019 Active Powder (BAQSIMI ONE PACK) route as needed documented as of this encounter (statuses as of 01/15/2019) Active Problems Problem Noted Date Puncture wound of forearm, left 09/25/2016 Chest pain in adult 10/13/2015 Hypercalcemia 04/01/2015 Long-term insulin use 03/27/2015 Last Assessment & Plan: I: C- 1: 10 grams of carbs ISF -1:25 Target: 100-140 Active insulin: 3 hrs. Basal Increment - Humalog Basal Insulin Basal Rate Starting Time Basal Rate Starting Time Basal#1 2.50 (can decrease to 2.3 if hypoglycemia continues) unit/hr 12mn Basal #6 unit/hr Basal #2 2.00 unit/hr 6 am Basal #7 unit/hr Basal #3 2.00 unit/hr 4 pm Basal #8 unit/hr Basal #4 unit/hr Basal #9 unit/hr Basal #5 unit/hr Basal #10 unit/hr Pioglitazone at 15 mg po daily No metformin . 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 PCS consulted to assist with facilitating communication. Bacterial vaginosis 03/26/2015 Vitamin D deficiency 03/26/2015 AML (acute myeloid leukemia) in remission 03/24/2015 Hypothyroid 03/23/2015 GERD (gastroesophageal reflux disease) 03/23/2015 Appendicitis 03/03/2015 History of cocaine abuse 03/03/2015 History of alcohol abuse 03/03/2015 Phlegmon 03/03/2015 Overview: RLQ Type 2 diabetes mellitus with hyperglycemia 02/02/2015 Carpal tunnel syndrome, bilateral 06/12/2014 Personal history of myeloid leukemia Abnormal PFT (mild restrictive PFT's) Neurocognitive deficits Bilateral cataracts Hypertriglyceridemia Recurrent pancreatitis Eczema Status post bone marrow transplant Osteochondroma (removed x2, 1999) S/P thyroidectomy (2001) Elevated transaminase level (intermittent) Menopause ovarian failure Overview: age of 21 after total body irridation documented as of this encounter (statuses as of 01/15/2019) Resolved Problems Problem Noted Date Resolved Date Type 2 diabetes mellitus 04/01/2015 05/17/2015 Transaminitis 03/26/2015 03/26/2015 Leukocytosis 03/26/2015 03/26/2015 Acute appendicitis 03/03/2015 03/23/2015 Right lower quadrant abdominal pain 03/03/2015 03/23/2015 Long-term insulin use 02/02/2015 03/23/2015 Nephropathy 05/15/2014 03/23/2015 Neuropathy 05/15/2014 03/23/2015 Acute pancreatitis 06/18/2013 07/15/2014 Hyperglycemia without ketosis 10/22/2011 03/23/2015 Diabetes type 2, uncontrolled 10/20/2011 05/17/2015 Overview: ASSESSMENT AND PLAN: Sonali Azar is a 27 y.o. female admitted with hypertriglyceridemia with abdominal pain. Endocrine consulted for evaluation of diabetes type 2. 1. Hypertriglyceridemia: TG 683: continuing to improve. Tolerating liquid diet. - continue insulin gtt. Goal TG< 500 to be off insulin gtt - continue lipitor, tricor, lovaza. - monitor TG levels daily - pain improved. - on HRT for POI: managed as per ENGINEER TECHNICAL STAFF 2. T2DM: bg controlled. - on insulin gtt. Discharge recs: - - resume metformin 1000 mg BID - lantus 10 units qhs - lispro AC > 200: 2,4,6,8. - follow up at [facility] with Dr Gaspar - pt to see inpatient [place] for insulin teaching. 3. Hypothyroidism: TSH 10 - have increased dose to 125 mcg/day pt to be discharged on this dose. - recheck tfts in 3-4 weeks. Patient has been seen with Dr Grajeda who agrees with above assessment and plan. Cosigned by: Roger Grajeda MD [06/24/2013 11:04 AM] Last Assessment & Plan: Insulin Pump Record - Sliding Scale Sonali Azar 02/02/2015 Insulin Type: Humalog Insulin Pump Model: MiniMed Bolus Increment: 0.05 Infusion Set: I: Carb 1:5 I: SF 1: 50 Target 100-140 Active insulin 3 hours Basal Incremen Basal Insulin Basal Rate Starting Time Basal Rate Starting Time Basal#1 5 unit/hr 12mn Basal #6 unit/hr Basal #2 4 unit/hr 6 am Basal #7 unit/hr Basal #3 unit/hr Basal #8 unit/hr Basal #4 unit/hr Basal #9 unit/hr Basal #5 unit/hr Basal #10 unit/hr Short stature 03/23/2015 Primary ovarian failure 03/23/2015 Iatrogenic pituitary disorders 10/22/2011 Overview: 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 Toxic effect of ethanol, intentional self-harm 03/23/2015 Metabolic syndrome 03/23/2015 documented as of this encounter (statuses as of 01/15/2019) Immunizations Name Administration Dates Next Due Tdap 09/25/2016 documented as of this encounter Social History Tobacco Use Types Packs/Day Years Used Date Current Every Day Smoker Cigarettes 0.25 Smokeless Tobacco: Never Used Alcohol Use Drinks/Week oz/Week Comments No 0 Standard drinks or equivalent 0.0 Sex Assigned at Date Recorded Not on file Job Start Date Occupation Industry Not on file Not on file Not on file Travel History Travel Start Travel End No recent travel history available. documented as of this encounter Last Filed Vital Signs Vital Sign Reading Time Taken Comments Blood Pressure 116/76 01/15/2019 11:08 AM EST Pulse 92 01/15/2019 11:08 AM EST Temperature - - Respiratory Rate - - Oxygen Saturation - - Inhaled Oxygen Concentration - - Weight 50.7 kg (111 lb 12.4 oz) 01/15/2019 11:08 AM EST Height 152.2 cm (4' 11.92") 01/15/2019 11:08 AM EST Body Mass Index 21.89 01/15/2019 11:08 AM EST documented in this encounter Patient Instructions Patient InstructionsLansing, ROSARIO Nagel - 01/15/2019 11:00 AM EST Long-term insulin use I: C- 1: 10 grams of carbs ISF -1:25 Target: 100-140 Active insulin: 3 hrs. Basal Increment - Humalog Basal Insulin Basal Rate Starting Time Basal Rate Starting Time Basal#1 2.50 (can decrease to 2.3 if hypoglycemia continues) unit/hr 12mn Basal #6 unit/hr Basal #2 2.00 unit/hr 6 am Basal #7 unit/hr Basal #3 2.00 unit/hr 4 pm Basal #8 unit/hr Basal #4 unit/hr Basal #9 unit/hr Basal #5 unit/hr Basal #10 unit/hr Pioglitazone at 15 mg po daily No metformin . THE 15:15 RULE: Treating Low Blood Sugars DURING THE DAY If you get a reading below 70, eat/drink something that is 15 grams of carbohydrates (ex: half a cupof juice or regular soda, 4 glucose tablets, 3 small chewable candies, glass of milk), and recheck blood sugar reading in 15 minutes. Repeat if necessary to get blood sugar above 70. AT BED TIME AND BEFORE DRIVING CHECK YOU BLOOD GLUCOSE If you get a reading below 100, eat/drink something that is 15 grams of carbohydrates (ex: half a cup of juice or regular soda, 4 glucose tablets, 3 small chewable candies, glass of milk), and recheck blood sugar reading in 15 minutes. Repeat if necessary to get blood sugar above 100. Recommend physical activity minimum 30 minutes a day, most days of the week, or as tolerated Recommend 5+ servings of vegetables a day. Limit servings or starchy carbohydrates (pasta, rice, bread, potatoes, peas, corn). Please arrive 15 mins prior to your schedule office visit. Please bring your meter to every office visit. [place] DRIVING GUIDELINES The patient must demonstrate willingness to adhere to the following recommendations: ? Keep scheduled appointments with the medical provider and diabetes team members ? Bring their blood glucose meter for download ? Bring a detailed record to include food intake, blood glucose readings, insulin taken, exercise, and other pertinent information ? Download their blood glucose meter between appointments and fax results to the educator, based onfrequency set by the diabetes team members (if home equipment is available and based on patient capabilities) ? Identify appropriate steps in hypoglycemic prevention and treatment (refer to [place] hypoglycemic guidelines) ? Consistently wear diabetes identification ? Always carry fast acting glucose and/or carbohydrate snacks ? Always check blood glucose before driving with a goal to be above 100 mg/dL ? Carry a blood glucose meter at all times, when away from home ? Stop driving if hypoglycemia is suspected and check blood glucose immediately. o Treat low blood glucose as needed Do not resume driving until measured blood glucose level is at least 100 mg/dL documented in this encounter Progress Notes Sue Urbina PA - 01/15/2019 11:00 AM EST Sonali Azar is a 33 y.o. female seen today for evaluation and management of type 2 diabetes. History taken from patient. She was last seen in our office 10/[address] Goff. Changes in medical history since last visit include frequent and severe hypoglycemia. She states her BG dropped as low as 22. She went to the ED, but was just triaged and did not stay. She is frequently hypoglycemic overnight. She has a very busy job and hypoglycemia typically occurs when she is unable to eat. She is not always feeling hypoglycemia. She lives alone and is concerned about complications. Denies lifestyle changes. HPI: Diabetes first diagnosed: 2011 Initially treated with pills. Pump 2013 Currently manages diabetes with: Actos 15 mg Pump: Omnipod Insulin: Humalog Basal Rates: 0 00:00: 2.75 06:00: 2.25 16:00: 2.150 C:I ratio: 1:10 Sensitivity: 25 BG target: 100-140 TDD insulin: 60.6 units Avg daily basal: 53.7 units; 89% Avg daily bolus: 6.8 units; 11% She changes her infusion site every 2-3 days and denies any problems with irritation, infection or scar tissue. She use the bolus wizard. Last a1C: 6.3 Statin: yes DIABETES RELATED ROS: 1. Blood sugar checks x 4-6/day 2. Symptoms of hypoglycemia: Daily. Usually overnight. Several severe- has BG as low as 22 Require outside assistance: yes 2016 Loss of consciousness: yes 2016 with OD Seizure: no Medic Alert: no 3. Threshold: Partial unawareness. Not feeling until 40s or below 4. Diabetic ketoacidosis: no 5. Neuropathic symptoms (paresthesiae/numbness/pain): some 6. Last eye exam: 09/2018- no DR 7. Macrovascular disease symptoms: angina: no intermittent claudication: no TIA: no 8. Foot Ulceration: no 9. Experiential Therapist: no 10. Patient Office Rep: yes 11. Sanitarian Inspector: no DIET Numbers of meals per day: 3 Breakfast: breakfast sandwich or yogurt with fruit Lunch: salad Dinner: tuna, chicken salad, meat, not much starch HOME BLOOD GLUCOSE RECORD Fasting Blood sugar: 38-200 Pre-lunch Blood sugar: 40-80 Pre-dinner Blood sugar: 50-160 Bedtime: Blood sugar: 50-190 Lows: many throughout. 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 Hypertriglyceridemia: in past she had levels upto 4000. Multifactorial: most likely genetic with superimposed lifestyle : h/o Alcohol abuse in past was in rehab, h/o hypothyroidism, uncontrolled DM, on climara patch for POF. -Currently on fenofibrate, crestor and vascepa. Also on actos. -Improved per last labs Hypothyroidism: SYNTHROID 137 mcg daily x 6 days week , she has postsurgical hypothyroidism. She takes her medication properly and regularly. Has hx of ETOH and drug abuse Questions or concerns: Hypoglycemia Past Medical History: Diagnosis Date AML (acute myeloid leukemia) in remission 26 years ago total body irradiation. Anxiety Depression Diabetes mellitus type II 2011 Drug abuse ETOH/COCAINE NO ALCOHOL SINCE 10/06/2014. NO COCAINE SINCE 2012 Elevated LFTs GERD (gastroesophageal reflux disease) Hypertension Menopause ovarian failure age of 21 after total body irridation Osteochondroma years ago knee Pancreatitis 2007 Postsurgical hypothyroidism 12 years ago benign goiter (wasn't functioning secondary to irradiation) Past Surgical History: Procedure Laterality Date CARPAL TUNNEL RELEASE Left 08/03/14 ECTR KNEE SURGERY for osteochondroma WA COLONOSCOPY FLX DX W/COLLJ SPEC WHEN PFRMD N/A 01/12/2016 Procedure: COLONOSCOPY, FLEXIBLE, PROXIMAL TO SPLENIC FLEXURE DX, W/WO SPECIMENS/COLON DECOMP (SEP PROC); Surgeon: Kit Dominguez MD; Location: OR ENDO; Service: Endoscopy; Laterality: N/A; WA COLONOSCOPY W/BIOPSY SINGLE/MULTIPLE N/A 01/12/2016 Procedure: COLONOSCOPY, FLEXIBLE, PROXIMAL TO SPLENIC FLEXURE W/BX, SINGLE/ MULTIPLE; Surgeon: Kit Dominguez MD; Location: OR ENDO; Service: Endoscopy; Laterality: N/A; WA EDG US EXAM SURGICAL ALTER STOM DUODENUM/JEJUNUM N/A 01/04/2015 Procedure: UPPER GI ENDOSCOPY W/ U/S EGD EXAM; Surgeon: Guido Thomas MD; Location: OR ENDO; Service: Endoscopy; Laterality: N/A; THYROIDECTOMY 2001 at age of 15, after radiation to whole body MNG Family History Problem Relation Age of Onset Alzheimer's disease Paternal Grandfather Thyroid disease Mother SOCIAL HISTORY: Lives with her dad Social History Tobacco Use Smoking status: Current Every Day Smoker Packs/day: 0.25 Types: Cigarettes Smokeless tobacco: Never Used Substance Use Topics Alcohol use: No Alcohol/week: 0.0 standard drinks Drug use: No Types: "Crack" cocaine Comment: not since Oct 2015 Allergies Allergen Reactions Influenza Vaccines Swelling Current Outpatient Medications Medication Sig Dispense Refill BuPROPion HCl (WELLBUTRIN PO) Take 100 mg by mouth Choline Fenofibrate (TRILIPIX) 135 MG capsule Take 135 mg by mouth daily 90 capsule 1 CLIMARA PRO 0.045-0.015 MG/DAY Place 1 patch onto the skin once a week As directed. 4 patch 4 glucose blood (FREESTYLE TEST STRIPS) test strip Use as instructed, test up to 5 times daily. DX E11.65 450 each 1 Icosapent Ethyl (VASCEPA) 1 G CAPS Take 2 capsules by mouth Two Times Daily Insulin Disposable Pump (OMNIPOD) MISC Use as directed. insulin lispro (HUMALOG) 100 UNIT/ML vial Use as directed via insulin pump. Total daily dosenot to exceed 135 units with titration and priming. Dx: E11.65 120 mL 1 Lancet Device MISC Use as directed. Contour Lancet Device 1 each 0 Multiple Vitamins-Minerals (MULTIVITAMIN WITH MINERALS) tablet Take 1 tablet by mouth daily. omeprazole (PRILOSEC) 40 MG capsule Take 40 mg by mouth daily ondansetron (ZOFRAN-ODT) 4 MG disintegrating tablet Take 4 mg by mouth every 8 (eight) hours as needed for Nausea pioglitazone (ACTOS) 15 MG tablet Take 1 tablet by mouth daily 30 tablet 5 ramipril (ALTACE) 2.5 MG capsule Take 2.5 mg by mouth daily. rosuvastatin (CRESTOR) 20 MG tablet Take 20 mg by mouth daily. SYNTHROID 137 MCG tablet Take 1 tablet by mouth daily As directed 90 tablet 1 insulin glargine (LANTUS) 100 UNIT/ML vial Use as directed in case of pump failure. Inject 48 units once daily. (Patient not taking: Reported on ) 1 vial 5 No current facility-administered medications for this visit. ROS: The remainder of complete review of systems is otherwise negative except as noted in HPI. PHYSICAL EXAM: Vitals: 01/15/19 1108 BP: 116/76 Pulse: 92 Weight: 50.7 kg (111 lb 12.4 oz) Height: 1.522 m (4' 11.92") Body mass index is 21.89 kg/m. Wt Readings from Last 3 Encounters: 01/15/19 50.7 kg (111 lb 12.4 oz) 10/11/18 49.6 kg (109 lb 5.6 oz) 07/17/18 47.7 kg (105 lb 2.6 oz) BP Readings from Last 3 Encounters: 01/15/19 116/76 10/11/18 104/66 07/17/18 110/60 GENERAL: Awake, alert and in no acute distress EYES: conjunctivae are pink and moist, anicteric ENT/MOUTH: dentition: ok, tongue normal NECK: No adenopathy. THYROID: thyroid is unable to palpate, no nodules, non-tender CARDIOVASCULAR: regular rate and rhythm, no murmur, peripheral pulses +2 RESPIRATORY: Clear to auscultation bilaterally. No wheezing, rales or rhonchi GASTROINTESTINAL: soft, non-tender, non-distended, normal bowel sounds MUSCULOSKELETAL: normal muscle mass, normal gait SKIN: no breakdown, nails ok, injection sites + lipohypertrophy NEUROLOGIC: sensation to a 10 gm monofilament present at feet. PSYCHIATRIC: mood and affect are normal. LABS: results reviewed in epic, discussed with the pt. Lab Results Component Value Date HGBA1C 6.3 (H) 10/11/2018 HGBA1C 6.5 (H) 07/17/2018 HGBA1C 6.6 (H) 04/15/2018 Lab Results Component Value Date POCGLU 100 01/15/2019 Lab Results Component Value Date CHO 111 10/11/2018 TRIG 185 (H) 10/11/2018 HDL 23 (L) 10/11/2018 LDL 51 10/11/2018 VLDL 37 10/11/2018 Lab Results Component Value Date LDLDIRECT 84 09/18/2017 LDLDIRECT 89 12/20/2015 LDLDIRECT 47 03/27/2015 Lab Results Component Value Date CREATININE 0.72 10/11/2018 BUN 18 10/11/2018 NA 144 10/11/2018 K 3.8 10/11/2018 CL 103 10/11/2018 No components found for: EGFR Lab Results Component Value Date MICROALBCR 10/11/2018 Microalbumin less than linear limit, therefore no MALB/CRE ratio available Lab Results Component Value Date AST 45 (H) 10/11/2018 Lab Results Component Value Date ALT 34 (H) 10/11/2018 Lab Results Component Value Date TSH 0.394 10/11/2018 L1VGWVM 85.96 11/09/2011 G0JWBPS 10.1 10/19/2011 Lab Results Component Value Date FREET4 1.32 05/06/2018 Lab Results Component Value Date CALCIUM 10.4 (H) 10/11/2018 PHOS 3.6 04/02/2015 Assessment/Plan: 1. Diabetes Mellitus Type 2: A1C 6.3, Prior A1C 6.3 , Goal ~ 7 with no lows. I recommend Decreasing Basal rates throughout and getting a CGM -She is having frequent and severe hypoglycemia. My first priority is to eliminate this. She is getting significantly more insulin from basal rates. Basal rates reduced -We reviewed dangers of hypoglycemia. Call if this continues -Discussed Dexcom. I think this is medically necessary due to frequent and severe hypoglycemia withBG as low as 22. She lives alone and has partial hypoglycemic unawareness. Will meet with education today to discuss -She thinks her carb counting is accurate -Unable to tolerate metformin -Continue Actos 15 mg daily -She has a history of pancreatitis and elevated triglycerides. She is not a good candidate for DPP-4 or GLP-1 -Check BG 4-6 times daily and send logs in for review if BG below 70 or above 250 frequently. -We reviewed the 15:15 rule for treating hypoglycemia. Script for glucagon given -labs reviewed with patient The patient has been instructed to check their blood glucose level 4-6 times per day including fasting, premeal, and bedtime, but up to 8 times per day for sickday management, when symptomatic, or is correcting a low blood sugar. Should she note readings below 70 or above 250 on a regular basis, she is to contact the office for further medication adjustment. She is aware of the 15:15 rule to treat hypoglycemic episodes and proper diabetic footcare. 2. Blood Pressure: Within guidelines today at 116/76. She is currently on medications for this. We will continue to monitor. -on ACEI. 3. Lipids: She is currently on medications for this. We will continue to monitor. -TG very high in the past. Improved per last labs -On statin, vascepa and fenofibrate 4. Post surgical Hypothyroidism: The patient is clinically euthyroid. TFTs normal per last labs. She is to continue on 137 mcg Synthroid daily 6 days weekly, on an empty stomach, as directed. We reviewed signs and symptoms of hypo and hyperthyroidism. Should she develop any of those symptoms she is to contact the office. We will continue to monitor. 5. Primary ovarian failure: secondary to radiation for AML. - on climara patch - follows with ENGINEER TECHNICAL STAFF 6. Hypercalcemia: Maintain good hydration 7. Hypoglycemia: Insulin adjusted. Would benefit from Dexcom. Recommend yearly dilated eye exam and immunization (Flu vaccination/Pneumonia vaccination, Vaccine for Shingles and Hepatitis B vaccination). RTC 3 months Diabetes Self-Management Education/Training (DSME/T) Per [facility] policy AMB J-19, the [place] RN open end spinning operator CDE may provide my patient with insulin adjustmentsand all diabetes management guidelines per approved policies AMB J-01 through AMB J-18. My patient may receive diabetes self- management education for any nursing, nutrition, or physical therapy needs which arise and require the expertise of a [place] educator. Long-term insulin use I: C- 1: 10 grams of carbs ISF -1:25 Target: 100-140 Active insulin: 3 hrs. Basal Increment - Humalog Basal Insulin Basal Rate Starting Time Basal Rate Starting Time Basal#1 2.50 (can decrease to 2.3 if hypoglycemia continues) unit/hr 12mn Basal #6 unit/hr Basal #2 2.00 unit/hr 6 am Basal #7 unit/hr Basal #3 2.00 unit/hr 4 pm Basal #8 unit/hr Basal #4 unit/hr Basal #9 unit/hr Basal #5 unit/hr Basal #10 unit/hr Pioglitazone at 15 mg po daily No metformin . Orders Placed This Encounter Glucagon 3 MG/DOSE Nasal Powder (BAQSIMI ONE PACK) Thank you for allowing us to participate in the care of your patient. Please call us with further questions. documented in this encounter Plan of Treatment Date Type Specialty Care Team Description 05/19/2019 Office Visit Endocrinology Valeria Goff, [facility] [address] [place] [address] 08/19/2019 Office Visit Endocrinology Sue Urbina PA [address] [place] [address] Health Maintenance Due Date Last Done Comments MMR Vaccines ( - 1985 Standard series) Pneumococcal Vaccine: 1990 Pediatrics (0 to 5 Years) and At-Risk Patients (6 to 64 Years) (1 of 3 - PCV13) Varicella Vaccines (1 of 2 1997 - 13+ 2-dose series) Diabetic Foot Exam 2002 Dilated Retinal Exam 2002 Hepatitis B Vaccines (1 of 10/11/2003 3 - Risk 3-dose series) Cervical Cancer Screening 5 2005 years DTaP,Tdap,and Td Vaccines 10/23/2016 09/25/2016 (2 - Td) Influenza Vaccine 12/03/2018 Hemoglobin A1c 04/13/2019 10/11/2018, 07/17/2018, 04/15/2018, Additional history exists Lipid Disorder Screening 10/12/2019 10/11/2018, 04/15/2018, 09/18/2017, Additional history exists Urine Microalbumin 10/12/2019 10/11/2018, 04/15/2018, 09/18/2017, Additional history exists Pneumococcal Vaccine: 65+ 2049 Years (1 of 2 - PCV13) HIV Screening Completed 03/03/2015, 03/03/2015 HIB Vaccines Aged Out No longer eligible based on patient's age to complete this topic Hepatitis A Vaccines Aged Out No longer eligible based on patient's age to complete this topic IPV Vaccines Aged Out No longer eligible based on patient's age to complete this topic documented as of this encounter Goals Goal Patient Goal Associated Recent Patient-Stated? Author Type Problems Progress Blood Pressure < Blood Pressure 116/76 No Mols-[place] 140/90 (01/15/2019 selma, 11:08 AM EST) Isabel Martínez MD Decrease soda or Diet No Mols-[place] juice intake Isabel doss MD Eat more fruits Diet No Mols-[place] and vegetables Isabel doss MD Exercise 3x per Exercise No Mols-[place]alc week (30 min per selam, time) Isabel Martínez MD HEMOGLOBIN A1C < Result 6.3 No [place]ols-[place] 7.0 Component (01/15/2019 selam, 11:07 AM EST) Isabel Martínez MD LDL CHOLESTEROL Result 51 No Mols-K[place]alc < 100 Component (10/11/2018 selam, 12:17 PM EDT) Isabel Martínez MD documented as of this encounter Procedures Procedure Name Priority Date/Time Associated Comments Diagnosis POCT GLUCOSE, DOCKED Routine 01/15/2019 11:12 AM Results for this EST procedure are in the results section. POCT HEMOGLOBIN A1C, Routine 01/15/2019 11:07 AM Results for this DOCKED EST procedure are in the results section. documented in this encounter Results POCT glucose, docked (01/15/2019 11:12 AM EST) POC Glucose 100 70 - 140 mg/dL DARIEN POC Specimen Whole Blood Performing Organization Address [facility] [place] Number POINT OF CARE TEST [address] [place] [id number] DARIEN POC [facility] [place] [address] POCT Hemoglobin A1C, Docked (01/15/2019 11:07 AM EST) Hemoglobin A1C 6.3 (H) 4.0 - 6.0 % DARIEN POC Estimated Avg Glucose 134 (H) <126 mg/dL DARIEN POC Specimen Whole Blood Performing Organization Address [facility] [place] POINT OF CARE TEST [address] [place] [address] DARIEN POC [facility] [place] [address] documented in this encounter Visit Diagnoses Diagnosis Type 2 diabetes mellitus with hyperglycemia, with long-term current use of insulin - Primary Long-term insulin use Encounter for long-term (current) use of insulin Menopause ovarian failure Other ovarian failure Postoperative hypothyroidism Postsurgical hypothyroidism Hypertriglyceridemia Pure hyperglyceridemia Hypercalcemia S/P thyroidectomy (2001) Other postprocedural status documented in this encounter
--- NOTE | 2019-02-16 19:01 | ED ---
Throat Pain/Nasal Congestion - HPI Summary HPI Summary: Patient is a 33 y/o F presenting to [facility] with complaints of left upper molar pain. She states that she had a break in this tooth a few months ago, this was repaired by her dentist. Patient claims that she had no issues with this tooth until a few weeks ago when her tooth broke again. Dentist filled this tooth two days ago. However, she states that she has had persistent pain since this procedure. Patient took two Enoree tablets today with no relief in Sx. She states that she wants pain control until her dentist returns to the office in two days. On triage, pain is rated 8/10. 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 Home medications and allergies are reviewed. - History of Current Complaint Chief Complaint: EDDentalPain Time Seen by Provider: 02/16/19 18:52 Hx Obtained From: Patient Onset/Duration: Lasting Days, Still Present Severity: Severe Associated Signs And Symptoms: Positive: Negative Cough: None - Allergies/Home Medications Allergies/Adverse Reactions: Allergies Allergy/AdvReac Type Severity Reaction Status Date / Time morphine Allergy Itching Verified 05/23/18 23:05 PMH/Surg Hx/FS Hx/Imm Hx Endocrine/Hematology History: Reports: Hx Diabetes - INSULIN PUMP. 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 - Surgical History Surgery Procedure, Year, and Place: APPENDECTOMY; THYROIDECTOMY NODULES-BENIGN; CTR BILATERAL; RT KNEE SCOPE X2(OSTEOCHONDROMA); PORT PLACEMENT(HAS BEEN REMOVED ); BONE MARROW TRANSPLANT 1987 Infectious Disease History: No Infectious Disease History: Denies: Traveled Outside the [place] in Last 30 Days - Family History Known Family History: Positive: Diabetes Negative: Hypertension - Social History Alcohol Use: None Hx Substance Use: No - No substances currently, 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 Skin: The skin is warm and dry, and skin color reflects adequate perfusion. HEENT: The head is normocephalic and atraumatic. The pupils are equal and reactive. The conjunctivae are clear and without drainage. Nares are patent and without drainage. Mouth reveals moist mucous membranes, and the throat is without erythema and exudate. The external ears are intact. The ear canals are patent and without drainage. The tympanic membranes are intact. No abnormalities with left upper molar noted. Neck: The neck is supple with full range of motion and non-tender. There are no carotid bruits. There is no neck vein distension. Respiratory: Chest is non-tender. Lungs are clear to auscultation and breath sounds are symmetrical and equal. Cardiovascular: Heart is regular rate and rhythm. There is no murmur or rub auscultated. There is no peripheral edema and pulses are symmetrical and equal. Abdomen: The abdomen is soft and non-tender. There are normal bowel sounds heard in all four quadrants and there is no organomegaly palpated. Musculoskeletal: There is no back tenderness noted. Extremities are non-tender with full range of motion. There is good capillary refill. There is no peripheral edema or calf tenderness elicited. Neurological: Patient is alert and oriented to person, place and time. The patient has symmetrical motor strength in all four extremities. Cranial nerves are grossly intact. Deep tendon reflexes are symmetrical and equal in all four extremities. Psychiatric: The patient has an appropriate affect and does not exhibit any anxiety or depression. Triage Information Reviewed: Yes Vital Signs On Initial Exam: Initial Vitals Temp Pulse Resp BP Pulse Ox 97.2 F 108 16 169/105 99 02/16/19 18:42 02/16/19 18:42 02/16/19 18:42 02/16/19 18:42 02/16/19 18:42 Vital Signs Reviewed: Yes Procedures - Sedation Patient Received Moderate/Deep Sedation with Procedure: No Diagnostics - Vital Signs Vital Signs Temp Pulse Resp BP Pulse Ox 02/16/19 18:42 97.2 F 108 16 169/105 99 - Laboratory Lab Statement: Any lab studies that have been ordered have been reviewed, and results considered in the medical decision making process. EENT Course/Dx - Course Course Of Treatment: Ms. Azar'robert pain is uncontrolled at this point and it is reasonable to try Percocet instead of the Enoree. She will follow up with her dentist. There is no sign of acute infection at this point. - Diagnoses Provider Diagnoses: Pain, dental Discharge ED - Sign-Out/Discharge Documenting (check all that apply): Patient Departure - discharge - Discharge Plan Condition: Stable Disposition: HOME Prescriptions: oxyCODONE/Acetamin 5/325 MG* [Percocet 5/325 TAB*] 1 tab PO Q6H PRN #20 tab MDD 4 PRN Reason: Pain Patient Education Materials: Toothache (ED) Referrals: Noemi Hi MD [Primary Care Provider] - Additional Instructions: PLEASE RETURN TO ED FOR ANY NEW OR CONCERNING SYMPTOMS. PLEASE FOLLOW UP WITH YOUR DENTIST WITHIN THREE DAYS. - Billing Disposition and Condition Condition: STABLE Disposition: Home - Attestation Statements Document Initiated by Scribe: Yes Documenting Scribe: WILLY BARKER Provider For Whom Jason is Documenting (Include Credential): LUIS A SIU MD Scribe Attestation: WILLY Brady scribed for LUIS A SIU MD on 02/16/19 at 2112. Scribe Documentation Reviewed: Yes Provider Attestation: The documentation as recorded by the WILLY chamorro accurately reflects the service I personally performed and the decisions made by me, LUIS A SIU MD Status of Scribe Document: Viewed
[2019-02-16 19:56] VITALS: BP 151/100
== END 2019-02-16 19:46 | disposition home or self-care (01) ==
LOC: ED 18:41
DX: K08.89 Other specified disorders of teeth and supporting structures (principal); F17.210 Nicotine dependence, cigarettes, uncomplicated; E11.9 Type 2 diabetes mellitus without complications; Z96.41 Presence of insulin pump (external) (internal); E03.9 Hypothyroidism, unspecified; I10 Essential (primary) hypertension; Z85.6 Personal history of leukemia
CPT/HCPCS: 99282

== ENCOUNTER 2019-05-08 03:58 | Emergency (ER) | payer BC ==
--- OUTSIDE RECORDS SUMMARY | 2019-05-08 04:11 | XMS REPORT | Continuity of Care Document ---
:1985 External Reference #:[id number] Demographics Address [address] [place] [address] Mobile Phone [phone] Email Address Preferred Language en Marital Status Not or Nondenominational Affiliation Unknown Race White Ethnic Group Not or Author Name Monica Odell M.D. (transmitted by agent of provider Liliane Hooper) Address [address] [place] [address] Care Team Providers Name Role Phone Jolie Jones DO - Hospitalist Care Team Information Chef Manager [phone] Problems Active Problems Provider Date Localized, primary osteoarthritis of the pelvic Monica Odell M.D. Onset: region and thigh Social History Type Date Description Comments Sex Unknown ETOH Use Denies alcohol use Tobacco Use Start: Unknown Light tobacco smoker (10 or fewer cigarettes/day) Smoking Status Reviewed: 05/05/19 Light tobacco smoker (10 or fewer cigarettes/day) Exercise Type/Frequency Exercises sporadically Allergies, Adverse Reactions, Alerts Description No Known Drug Allergies Medications Active Medications SIG Qnty Indications Ordering Provider Date Oxycodone-Acetaminoph 1-2 tabs by 60tabs M25.551 Monica Odell, 04/04/2019 en mouth every 12 M.D. 5-325mg Tablets hours as needed for pain Synthroid 1 by mouth six 30tabs Jolie Jones, 03/13/2019 137mcg days a week DO Tablets Crestor 1 by mouth every Jolie Jones, 03/13/2019 20mg Tablets day DO Trilipix Jolie Jones, 03/13/[address] DO DR Actos 15 MG once daily Jolie Jones, 03/13/2019 DO Ramipril 1 by mouth every 14caps Jolie Jones, 03/13/2019 2.5mg Capsules day DO Wellbutrin XL 1 by mouth every 7tabs Jolie Jones, 03/13/2019 300mg day DO Tablets ER 24HR Omeprazole 1 by mouth every [facility], 03/13/2019 40mg day DO Capsules DR Mccoy 1 by mouth twice 180caps [facility], 03/13/2019 1gm Capsules a day DO Climara Pro once weekly 4units [facility], 03/13/2019 DO 0.045-0.015mg/Day Patches Weekly Sucralfate take one tablet 120tabs [facility], 03/13/2019 1gm Tablets by mouth daily DO as needed Zofran one twice a day 60tabs [facility], 03/13/2019 8mg Tablets as needed nausea DO Carafate one tablet on 30tabs [facility], 03/13/2019 1gm Tablets empty stomach DO one hour before meals daily. History Medications Percocet take one daily 14tabs M25.551 [facility], 03/13/2019 - 5-325mg as needed for DO 04/04/2019 Tablets pain Immunizations Description No Information Available Vital Signs Date Vital Result Comment 05/05/2019 10:36am Height 60 inches 5'0" Weight 110.00 lb Heart Rate 106 /min Respiratory Rate 12 /min Body Temperature 97.0 F Pain Level 6 BMI (Body Mass Index) 21.5 kg/m2 04/04/2019 2:54pm Weight 110.00 lb Heart Rate 114 /min BP Systolic Sitting 140 mmHg BP Diastolic Sitting 84 mmHg Respiratory Rate 14 /min Pain Level 10 O2 % BldC Oximetry 99 % Results Test Acquired Date Facility Test Result H/L Range Note Lipid Profile 04/11/2019 [facility] Triglycerides 233 mg/dL 1 (Trig/Chol/HDL) [address] [place] [address] [phone] Cholesterol 110 mg/dL 2 HDL Cholesterol 25.7 mg/dL 3 LDL Cholesterol 38 mg/dL 4 Lipid Profile 04/03/2019 [facility] Triglycerides 403 mg/dL 5 (Trig/Chol/HDL) [address] [place] [address] [phone] Cholesterol 108 mg/dL 6 HDL Cholesterol 27.2 mg/dL 7 LDL Cholesterol (SEE NOTE) mg/dL 8 Laboratory test 04/03/2019 [facility] Hemoglobin A1c 6.7 % High 4.0-5.6 9 finding [address] [facility] ([facility]) [place] [address] [phone] TSH (Thyroid Stim Horm) 0.69 mcIU/mL Normal 0.34-5.60 Calcium Ionized 1.35 mmol/L High 1.16-1.32 Pthi 04/03/2019 [facility] Calcium (PTH Intact) 10.7 mg/dL High 8.6-10.3 [address] [place] [address] [phone] PTH Intact 27.9 pg/mL Normal 12-88 Laboratory test 04/03/2019 [facility] Phosphorus 2.7 mg/dL Normal 2.5-5.0 finding [address] [place] [address] [phone] Vitamin D Total 25(Oh) 20.7 ng/mL Normal 20-50 10 HIV 1&2 p24 04/03/2019 [facility] HIV 4th Nonreactive Nonreactive Screen [address] [facility] [place] [address] [phone] Hepatitis C 04/03/2019 [facility] HCV Index 0.01 s/c Antibody [address] [place] [address] [phone] Hepatitis C Antibody Negative Negative Laboratory test 04/03/2019 [facility] LDL Cholesterol 58 mg/dL 11 finding [address] [facility] [place] [address] [phone] 1 Desirable: <150 Borderline High: 150-199 High: 200-499 Very High: >500 2 Desirable: <200 Borderline High: 200-239 High: >239 3 Low: <40 Desirable: 40-60 High: >60 4 Desirable: <100 Near Optimal: 100-129 Borderline High: 130-159 High: 160-189 Very High: >189 5 Desirable: <150 Borderline High: 150-199 High: 200-499 Very High: >500 6 Desirable: <200 Borderline High: 200-239 High: >239 7 Low: <40 Desirable: 40-60 High: >60 8 Unable to calculate LDL as triglyceride is > 400 9 Therapeutic target for the treatment of diabetes mellitus patients is <7% HBA1C, and in selective patients <6.0%. Please refer to [place] [employer] diabetic care guidelines for further information. 10 Total 25-Hydroxyvitamin D2 and D3 (25-OH-VitD) <10 ng/mL (severe deficiency) 10-19 ng/mL (mild to moderate deficiency) 20-50 ng/mL (optimum levels) 51-80 ng/mL (increased risk of hypercalciuria) >80 ng/mL (toxicity possible) 11 Desirable: <100 Near Optimal: 100-129 Borderline High: 130-159 High: 160-189 Very High: >189 Procedures Description No Information Available Medical Devices Description No Information Available Encounters Type Date Location Provider Dx Diagnosis Office Visit 04/04/2019 [facility] Monica Odell M25.551 Pain in right hip 2:15p at [place] [facility] M16.11 Unilateral primary osteoarthritis, right hip Assessments Date Code Description Provider 05/05/2019 M25.551 Pain in right hip Monica Odell M.D. 05/05/2019 M16.11 Unilateral primary osteoarthritis, right hip Monica Odell M.D. 04/04/2019 M25.551 Pain in right hip Monica Odell M.D. 04/04/2019 M16.11 Unilateral primary osteoarthritis, right hip Monica Odell M.D. 03/13/2019 Z00.00 Encounter for general adult medical examination Jolie Jones DO without abnormal findings 03/13/2019 M25.551 Pain in right hip Jolie Jones DO 03/13/2019 M25.561 Pain in right knee Jolie Jones DO 03/13/2019 F32.9 Major depressive disorder, single episode, Jolie Jones DO unspecified 03/13/2019 Z72.0 Tobacco use Jolie Jones DO Plan of Treatment 05/05/2019 - Monica Odell M.D.M25.551 Pain in right hipReferral:Casimiro Song MD, Surgery,OrthopedicFollow up:Follow up: As [id number] Unilateral primary osteoarthritis, right hipNew Therapy:Physical Therapy Functional Status Description No Information Available Mental Status Description No Information Available Referrals Refer to Reason for Referral Status Appt Date Casimiro Song MD eval for hip arthroscopy - labral tear Created [address] [place] [address] [phone] Monica Odell MD Sent 04/04/[address] [place] [address] [place] [address] [phone]
--- OUTSIDE RECORDS SUMMARY | 2019-05-08 04:11 | XMS REPORT | Continuity of Care Document ---
:1985 External Reference #:[id number] Demographics Address [address] [place] [address] Mobile Phone [phone] Email Address Preferred Language en Marital Status Not or Mandaen Affiliation Unknown Race White Ethnic Group Not or Author Name Monica Odell M.D. 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 Onset: region and thigh Social History Type Date Description Comments Sex Unknown ETOH Use Denies alcohol use Tobacco Use Start: Unknown Light tobacco smoker (10 or fewer cigarettes/day) Smoking Status Reviewed: 04/04/19 Light tobacco smoker (10 or fewer cigarettes/day) [...] ER 24HR Omeprazole 1 by mouth every [facility], 03/13/2019 40mg day DO Capsules DR Mccoy 1 by mouth twice 180caps [facility], 03/13/2019 1gm Capsules a day DO Climara Pro once weekly 4units [facility], 03/13/2019 DO 0.045-0.015mg/Day Patches Weekly Sucralfate take one tablet 120tabs [facility], 03/13/2019 1gm Tablets by mouth daily DO as needed Zofran one twice a day 60tabs [facility], 03/13/2019 8mg Tablets as needed nausea DO Carafate one tablet on 30tabs [facility], 03/13/2019 1gm Tablets empty stomach DO one hour before meals daily. History Medications Percocet take one daily 14tabs M25.551 [facility], 03/13/2019 - 5-325mg as needed for DO 04/04/2019 Tablets pain Immunizations Description No Information Available Vital Signs Date Vital Result Comment 04/04/2019 2:54pm Weight 110.00 lb Heart Rate 114 /min BP Systolic Sitting 140 mmHg BP Diastolic Sitting 84 mmHg Respiratory Rate 14 /min Pain Level 10 O2 % BldC Oximetry 99 % 03/13/2019 9:28am Weight 111.38 lb Heart Rate 91 /min BP Systolic 130 mmHg BP Diastolic 80 mmHg Body Temperature 96.0 F O2 % BldC Oximetry 99 % Results Test Acquired Date Facility Test Result H/L Range Note Lipid Profile 04/03/2019 [facility] Triglycerides 403 mg/dL 1 (Trig/Chol/HDL) [address] [place] [address] [phone] Cholesterol 108 mg/dL 2 HDL Cholesterol 27.2 mg/dL 3 LDL Cholesterol (SEE NOTE) mg/dL 4 Laboratory test 04/03/2019 [facility] Hemoglobin A1c 6.7 % High 4.0-5.6 [address] (Glyco HGB) [place] [address] [phone] TSH (Thyroid Stim Horm) 0.69 mcIU/mL Normal 0.34-5.60 Calcium Ionized 1.35 mmol/L High 1.16-1.32 Pthi 04/03/2019 [facility] Calcium (PTH Intact) 10.7 mg/dL High 8.6-10.3 [address] [place] [address] [phone] PTH Intact 27.9 pg/mL Normal 12-88 Laboratory test 04/03/2019 [facility] Phosphorus 2.7 mg/dL Normal 2.5-5.0 finding [address] [place] [address] [phone] Vitamin D Total 25(Oh) 20.7 ng/mL Normal 20-50 6 HIV 1&2 p24 04/03/2019 [facility] HIV 4th Nonreactive Nonreactive Screen [address] [facility] [place] [address] [phone] Hepatitis C 04/03/2019 [facility] HCV Index 0.01 s/c Antibody [address] [place] [address] [phone] Hepatitis C Antibody Negative Negative Laboratory test 04/03/2019 [facility] LDL Cholesterol 58 mg/dL 7 finding [address] [place] [address] [phone] 1 Desirable: <150 Borderline High: 150-199 High: 200-499 Very High: >500 2 Desirable: <200 Borderline High: 200-239 High: >239 3 Low: <40 Desirable: 40-60 High: >60 4 Unable to calculate LDL as triglyceride is > 400 5 Therapeutic target for the treatment of diabetes mellitus patients is <7% HBA1C, and in selective patients <6.0%. Please refer to [place] [employer] diabetic care guidelines for further information. 6 Total 25-Hydroxyvitamin D2 and D3 (25-OH-VitD) <10 ng/mL (severe deficiency) 10-19 ng/mL (mild to moderate deficiency) 20-50 ng/mL (optimum levels) 51-80 ng/mL (increased risk of hypercalciuria) >80 ng/mL (toxicity possible) 7 Desirable: <100 Near Optimal: 100-129 Borderline High: 130-159 High: 160-189 Very High: >189 Procedures Description No Information Available Medical Devices Description No Information Available Encounters Description No Information Available Assessments Date Code Description Provider 04/04/2019 M25.551 Pain in right hip Monica [...] use Jolie Jones DO Plan of Treatment 04/04/2019 - Monica Odell M.D.M25.551 Pain in right hipNew Medication:Oxycodone -Acetaminophen 5-325 mg - 1-2 tabs by mouth every 12 hours as needed for painNew Xrays:MRI Hip Right W/O, Ordered: 04/04/19Follow up:Follow up: after testing is completed - mri r hipM16.11 Unilateral primary osteoarthritis, right hip Functional Status Description No Information Available Mental Status Description No Information Available Referrals Refer to Reason for Referral Status Appt Date Monica Odell MD Sent 04/04/[address] [place] [address] [place] [address] [phone]
--- OUTSIDE RECORDS SUMMARY | 2019-05-08 04:11 | XMS REPORT | Continuity of Care Document ---
:1985 External Reference #:[id number] Demographics Address [address] [place] [address] Mobile Phone [phone] Email Address Preferred Language en Marital Status Not or Judaism Affiliation Unknown Race White Ethnic Group Not or Author Name Jolie Jones DO (transmitted by agent of provider Joana Pearson) Address [address] [place] [address] Care Team Providers Name Role Phone Jolie Jones DO - Hospitalist Care Team Information Regulatory Law Specialist Problems Description No Information Available Social History Type Date Description Comments Sex Unknown Tobacco Use Start: Unknown Light tobacco smoker (10 or fewer cigarettes/day) Smoking Status Reviewed: 03/13/19 Light tobacco smoker (10 or fewer cigarettes/day) Allergies, Adverse Reactions, Alerts Description No Known Drug Allergies Medications Active Medications SIG Qnty Indications Ordering Provider Date Synthroid 1 by mouth six 30tabs Jolie Jones, 03/13/2019 137mcg days a week DO Tablets Crestor 1 by mouth every Jolie Jones, 03/13/2019 20mg Tablets day DO Trilipix Jolie Jones, 03/13/2019 135mg Capsules DO Actos 15 MG once daily Jolie Jones, 03/13/2019 DO Ramipril 1 by mouth every 14caps Jolie Jones, 03/13/2019 2.5mg Capsules day DO Wellbutrin XL 1 by mouth every 7tabs Jolie Jones, 03/13/2019 300mg day DO Tablets ER 24HR Omeprazole 1 by mouth every Jolie Jones, 03/13/2019 40mg day DO Capsules DR Mccoy 1 by mouth twice 180caps Jolie Jones, 03/13/2019 1gm Capsules a day DO Climara Pro once weekly 4units Jolie Jones, 03/13/2019 DO 0.045-0.015mg/Day Patches Weekly Sucralfate take one tablet 120tabs Jolie Jones, 03/13/2019 1gm Tablets by mouth daily DO as needed Zofran one twice a day 60tabs Jolie Jones, 03/13/2019 8mg Tablets as needed nausea DO Carafate one tablet on 30tabs Jolie Jones, 03/13/2019 1gm Tablets empty stomach DO one hour before meals daily. Percocet take one daily 14tabs M25.551 Jolie Jamessharon, 03/13/2019 5-325mg as needed for DO Tablets pain Immunizations Description No Information Available Vital Signs Date Vital Result Comment 03/13/2019 9:28am Weight 111.38 lb Heart Rate 91 /min BP Systolic 130 mmHg BP Diastolic 80 mmHg Body Temperature 96.0 F O2 % BldC Oximetry 99 % Results Description No Information Available Procedures Description No Information Available Medical Devices Description No Information Available Encounters Description No Information Available Assessments Date Code Description Provider 03/13/2019 Z00.00 Encounter for general adult medical examination Jolie Jones DO without abnormal findings 03/13/2019 M25.551 Pain in right hip Jolie Jacobsharon, 03/13/2019 M25.561 Pain in right knee Jolie Jones, 03/13/2019 F32.9 Major depressive disorder, single episode, Jolie Karen, DO unspecified 03/13/2019 Z72.0 Tobacco use Jolie DO Karen Plan of Treatment 03/13/2019 - Jolie JonesDOZ00.00 Encounter for general adult medical examination without abnormal jazykyoqH11.551 Pain in right hipNew Medication: Percocet 5-325 mg - take one daily as needed for painM25.561 Pain in right kneeReferral:Monica Odell MD, Surgery,Ortho Adult BizsfP67.9 Major depressive disorder, single episode, unspecifiedComments:I gave you a list of therapists we recommend today. Let me know if you have any issues getting in to one or need any help.Z72.0 Tobacco use Functional Status Description No Information Available Mental Status Description No Information Available Referrals Refer to Reason for Referral Status Appt Date Monica Odell MD Created [address] [place] [address] [place] [address] [phone]
--- NOTE | 2019-05-08 06:35 | ED ---
Lower Extremity - HPI Summary HPI Summary: Pt. is a 33 y.o female who presents to the ER for increased right hip pain. Pt. notes 6mos hx of right hip pain. She was referred to ortho. and saw Dr. Odell. MRI showed likely labral tear. Pt. states Dr. Odell wants to refer her to [facility] for sxs. Pt. states she has been taking aleve without improvement. Pt. states pain has increased due to physical job and she was unable to sleep tonight. Denies new injury. Sxs are mild in severity. Walking makes sxs worse. Nothing improves pain. Otherwise denies fever or recent illness. - History of Current Complaint Chief Complaint: EDHipPelvisInjury Stated Complaint: RT HIP PAIN PER PT Time Seen by Provider: 05/08/19 05:43 Hx Last Menstrual Period: post menopausal Pain Intensity: 8 - Allergies/Home Medications Allergies/Adverse Reactions: Allergies Allergy/AdvReac Type Severity Reaction Status Date / Time morphine AdvReac Itching Verified 05/08/19 04:29 Home Medications: Home Medications Estradiol/Levonorgestrel [Climara Pro Patch] 1 patch TRANSDERM WEEKLY 08/04/17 [ History Confirmed 05/16/18] Fenofibrate Acid 135mg CAP(NF) [Trilipix(NF)] 135 mg PO DAILY 08/04/17 [History Confirmed 05/16/18] Icosapent Ethyl [Vascepa] 1 gm PO BID 08/04/17 [History Confirmed 05/16/18] Insulin LISPRO* [HumaLOG*] 0 units SUBCUT .VIA PUMP MDD 115 units 08/04/17 [ History Confirmed 05/16/18] Levothyroxine TAB* [Synthroid TAB*] 137 mcg PO DAILY 08/04/17 [History Confirmed 05/16/18] Omeprazole CAP (NF) [Prilosec CAP* 20 MG] 40 mg PO BID #120 cap. 08/04/17 [Rx Confirmed 05/16/18] Ondansetron ODT TAB* [Zofran 4 MG Odt TAB*] 8 mg PO Q8H PRN #30 tab.odt [Rx Confirmed 05/16/18] Pioglitazone TAB* [Actos TAB*] 15 mg PO DAILY 08/04/17 [History Confirmed ] Ramipril CAP* [Altace CAP*] 2.5 mg PO DAILY 08/04/17 [History Confirmed 05/16/18 ] Rosuvastatin (NF) [Crestor] 20 mg PO DAILY 08/04/17 [History Confirmed 08/04/17] Sucralfate TAB* [Carafate*] 1 gm PO QID #120 tab 08/04/17 [Rx Confirmed 05/16/18 ] buPROPion SR TAB* [Wellbutrin SR TAB*] 100 mg PO DAILY 08/04/17 [History Confirmed 05/16/18] Oxycodone HCl 5 mg PO TID 2 Days #6 tablet MDD 3 tabs 10/09/17 [Rx Confirmed ] Pantoprazole TAB * [Protonix TAB (NF)] 40 mg PO DAILY #30 tab 01/21/18 [Rx Confirmed 05/16/18] Cephalexin CAP* [Keflex CAP*] 500 mg PO TID 7 Days #21 cap 05/16/18 [Rx] Oxycodone HCl 5 mg PO Q6HR 2 Days #8 tablet MDD 4 tabs 05/16/18 [Rx] Clindamycin Cap(NF) [Clindamycin Cap 300 mg Cap(NF)] 300 mg PO TID 7 Days #21 cap 05/24/18 [Rx] Hydrocodone/Acetaminophen [Hydrocodone/Acetaminophen 5-325 mg] 1 tab PO Q8HR PRN #9 tab MDD 3 05/24/18 [Rx] Mupirocin 2% OINT* [Bactroban 2 % Oint*] 1 applic TOPICAL BID #1 tube 05/24/18 [ Rx] oxyCODONE/Acetamin 5/325 MG* [Percocet 5/325 TAB*] 1 tab PO Q6H PRN #20 tab MDD 4 02/16/19 [Rx] oxyCODONE/Acetamin 5/325 MG* [Percocet 5/325 TAB*] 1 tab PO Q6H PRN #8 tab MDD 4 05/08/19 [Rx] PMH/Surg Hx/FS Hx/Imm Hx Previously Healthy: Yes Endocrine/Hematology History: Reports: Hx Diabetes - INSULIN PUMP. 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 - Surgical History Surgery Procedure, Year, and Place: APPENDECTOMY; THYROIDECTOMY NODULES-BENIGN; CTR BILATERAL; RT KNEE SCOPE X2(OSTEOCHONDROMA); PORT PLACEMENT(HAS BEEN REMOVED ); BONE MARROW TRANSPLANT 1987 Infectious Disease History: No Infectious Disease History: Denies: Traveled Outside the [place] in Last 30 Days - Family History Known Family History: Positive: Diabetes, Non-Contributory Negative: Hypertension - Social History Occupation: Employed Full-time Lives: Alone Alcohol Use: None Hx Substance Use: No - No substances currently, 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 Neurological/Mental Status: Negative Negative: Weakness, Paresthesia, Numbness All Other Systems Reviewed And Are Negative: Yes Physical Exam Triage Information Reviewed: Yes Vital Signs On Initial Exam: Initial Vitals Temp Pulse Resp BP Pulse Ox 97 F 109 22 142/92 97 05/08/19 03:59 05/08/19 03:59 05/08/19 03:59 05/08/19 03:59 05/08/19 03:59 Vital Signs Reviewed: Yes Appearance: Positive: Well-Appearing - Pt. lying on bed in NAD. Appears uncomfortable but nontoxic. Skin: Positive: Warm, Dry Head/Face: Positive: Normal Head/Face Inspection Eyes: Positive: Normal, EOMI Neck: Positive: Supple Musculoskeletal: Positive: Other - Good right pedal pulse. No edema to leg. Pain with ROM of right hip. Neurological: Positive: Normal, CN Intact II-III Psychiatric: Positive: Affect/Mood Appropriate Procedures - Sedation Patient Received Moderate/Deep Sedation with Procedure: No Diagnostics - Vital Signs Vital Signs Temp Pulse Resp BP Pulse Ox 05/08/19 03:59 97 F 109 22 142/92 97 - Laboratory Lab Statement: Any lab studies that have been ordered have been reviewed, and results considered in the medical decision making process. Lower Extremity Course/Dx - Course Course Of Treatment: Pt. with ongoing hip pain with MRI showing likely labral tear. Pt. requesting pain medications and work note. She is waiting to hear from ortho. for f.u plan. Pt. notes she has had no pain relieve with OTC pain meds and states pain has been not allowing her to sleep. 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 Will rx 2 days of pain meds. Strongly advised she needs to f.u with ortho and pcp for any further pain medication and for further management. Pt. understands and agrees with plan. - Diagnoses Differential Diagnosis/HQI/PQRI: Positive: Sprain, Strain Provider Diagnoses: Hip pain, Labral tear of hip joint Discharge ED - Sign-Out/Discharge Documenting (check all that apply): Patient Departure - Discharge Plan Condition: Good Disposition: HOME Prescriptions: oxyCODONE/Acetamin 5/325 MG* [Percocet 5/325 TAB*] 1 tab PO Q6H PRN #8 tab MDD 4 PRN Reason: Pain - Severe Patient Education Materials: Hip Pain (ED) Forms: *Work Release Referrals: Jolie Jones DO [Primary Care Provider] - Monica Odell MD [Medical Doctor] - Additional Instructions: Follow up with PCP and orthopedics as scheduled Pain medication as directed Activity as tolerated Return to ER if symptoms change or worsen - Billing Disposition and Condition Condition: GOOD Disposition: Home
[2019-05-08 06:48] VITALS: BP 127/88
== END 2019-05-08 06:40 | disposition home or self-care (01) ==
LOC: ED 03:58
DX: M25.551 Pain in right hip (principal); S73.101A Unspecified sprain of right hip, initial encounter; X58.XXXA Exposure to other specified factors, initial encounter; Y92.9 Unspecified place or not applicable; E11.9 Type 2 diabetes mellitus without complications; Z96.41 Presence of insulin pump (external) (internal); Z79.4 Long term (current) use of insulin; E03.9 Hypothyroidism, unspecified; I10 Essential (primary) hypertension; Z79.899 Other long term (current) drug therapy; Z88.5 Allergy status to narcotic agent; F17.200 Nicotine dependence, unspecified, uncomplicated
CPT/HCPCS: 99282